=== PATIENT | male | born 1945 | race Caucasian/White ===

== ENCOUNTER → 2022-08-18 | Outpatient (CLI) | payer MEDICARE ==
[~2022-08-18] MED LIST: ASPI-556 PO; EZET10TA13 PO; L.AC1CAP6 PO; MULT-1192 PO; POLY17PO4 PO; UBID30CA11 PO; VIT D3 PO
== END | disposition home or self-care (01) ==
LOC: SHCH 14:29
PROVIDERS: ATTEND Internal Medicine Cardiovascular Disease
DX: I08.3 Combined rheumatic disorders of mitral, aortic and tricuspid valves (principal); I48.0 Paroxysmal atrial fibrillation
CPT/HCPCS: 93306

== ENCOUNTER 2022-11-29 05:33 | Observation (INO) | payer MEDICARE ==
[2022-11-26 09:58] LABS: BASOPHILS % (AUTO) 0.2 % (0.0-5.0); EOSINOPHILS % (AUTO) 1.6 % (0.0-8.0); HEMATOCRIT 44.3 % (42-54); LYMPHOCYTES % (AUTO) 19.7 % (21.0-51.0); MEAN CORPUSCULAR HEMOGLOBIN 29.1 pg (27.0-33.0); MEAN CORPUSCULAR HGB CONC 31.4 g/dL (32.0-36.0); MEAN CORPUSCULAR VOLUME 92.7 fL (79-99); MONOCYTES % (AUTO) 13.9 % (3.0-13.0); NEUTROPHILS % (AUTO) 64.1 % (40.0-77.0); PLATELET COUNT (AUTO) 163 K/uL (130-400); RED BLOOD CELL COUNT(AUTO) 4.78 MIL/uL (4.50-6.20); RED CELL DISTRIBUTION WIDTH 12.7 % (11.0-15.5); WHITE BLOOD COUNT (AUTO) 6.2 K/uL (4.8-10.8)
[2022-11-26 10:11] LABS: POTASSIUM 5.1 mmol/L (3.5-5.1)
[2022-11-26 10:13] VITALS: BP 139/77
[2022-11-26 10:14] LABS: INR 1.13 (0.85-1.15); PROTHROMBIN TIME 12.2 SEC (9.6-11.6)
[2022-11-26 10:16] LABS: PARTIAL THROMBOPLASTIN TIME 31.6 SEC (26.3-35.5)
[~2022-11-29] VITALS: Ht 188 cm; Wt 112.5 kg
[2022-11-29] VITALS (23 sets, daily range): BP systolic 107–153; BP diastolic 61–90
[~2022-11-29 05:33] MED LIST changes: +APIX5TAB PO; -ASPI-556 PO; -L.AC1CAP6 PO; +LACT10SO76 PO; +MAGN500C4 PO; -MULT-1192 PO; -POLY17PO4 PO; +TAMS-1 PO; -UBID30CA11 PO; +VIBE75TA PO; -VIT D3 PO
[2022-11-29] MEDS ORDERED: HEPARIN 10,000 UNIT/10ML (1,000 UNIT/ML) VIAL ONE ×2 (07:16→09:31)
[2022-11-29] MEDS ORDERED: PROPOFOL 10 MG/ML 20ML VIAL IV ONE (07:31)
[2022-11-29] MEDS ORDERED: GLYCOPYRROLATE 1 MG/5 ML SYRINGE ONE (07:31)
[2022-11-29] MEDS ORDERED: SUCCINYLCHOLINE CHLORIDE 20 MG/ML 10 ML VIAL ONE (07:31)
[2022-11-29] MEDS ORDERED: LIDOCAINE PF 100MG/5ML (2%) SYRINGE 5ML ONE (07:31)
[2022-11-29] MEDS ORDERED: ONDANSETRON 4MG INJ ONE (07:32)
[2022-11-29] MEDS ORDERED: PHENYLEPHRINE HCL 10 MG/ML 1ML VIAL IV ONE ×2 (07:32→09:33)
[2022-11-29] MEDS ORDERED: NEOSTIGMINE 5MG/5ML SYR IV ONE (07:32)
[2022-11-29] MEDS ORDERED: ROCURONIUM 10MG/1ML SYR 10 MG/ML ML ONE (07:32)
[2022-11-29] MEDS ORDERED: FENTANYL CITRATE PF 50 MCG/1 ML 2ML VIAL ONE (07:33)
[2022-11-29] MEDS ORDERED: KETAMINE 50MG/ML SYRINGE 50 MG/ML DISP.SYRIN ONE (07:34)
[2022-11-29] MEDS ORDERED: MIDAZOLAM HCL 1 MG/ML 2ML VIAL ONE (08:00)
[2022-11-29] MEDS ORDERED: ROCURONIUM BROMIDE 10MG/1ML 5ML VL ONE ×2 (09:09→10:34)
[2022-11-29] MEDS ORDERED: NOREPINEPHRINE BITARTRATE 1 MG/1 ML ML IV ONE (09:22)
[2022-11-29] MEDS ORDERED: ISOPROTERENOL HCL 0.2 MG/ML AMP/VIAL/BAG ONE (11:32)
[2022-11-29] MEDS ORDERED: PROTAMINE SULFATE 10 MG/ML 25ML VIAL IV ONE (11:54)
[2022-11-29] MEDS ORDERED: SUGAMMADEX SODIUM 200 MG/2 ML VIAL IV ONE (11:58)
[2022-11-29] MEDS ORDERED: PANTOPRAZOLE 40 MG TAB DR PO SCH (12:30)
[2022-11-29] MEDS ORDERED: PANT40TA55 PO (12:30)
[2022-11-29] MEDS ORDERED: SUCR1ORA15 PO (12:30)
[2022-11-29] MEDS ORDERED: ACETAMINOPHEN 325 MG TAB PO PRN (12:30)
[2022-11-29] MEDS: SUCRALFATE 1 GM TABLET PO SCH ×2 (18:24→21:25)
[2022-11-30 00:09] VITALS: BP 107/60
[2022-11-30 04:06] VITALS: BP 114/67
[2022-11-30] MEDS: SUCRALFATE 1 GM TABLET PO SCH (06:35)
[2022-11-30] MEDS ORDERED: PANTOPRAZOLE 40 MG TAB DR PO SCH (07:30)
[2022-11-30 08:00] VITALS: BP 106/62
== END 2022-11-30 11:00 | disposition home or self-care (01) ==
LOC: DAH 05:33 → DAHIP 05:34 → 2AH 10:00
PROVIDERS: ADMIT Internal Medicine Cardiovascular Disease; ATTEND Internal Medicine Cardiovascular Disease
DX: I48.0 Paroxysmal atrial fibrillation (principal); Z20.822 Contact with and (suspected) exposure to COVID-19; Z79.01 Long term (current) use of anticoagulants; Z79.899 Other long term (current) drug therapy; Z98.890 Other specified postprocedural states
CPT/HCPCS: 80048; 85025; 85610; 85730; 87426; 36415; 93005 ×2; 93622; 93623; 93655; 93656; 93657; A4344; C1894 ×3; C1893; A4215 ×2; C1731; A4649 ×2; C1732; C1730; G0378 ×22; J3010; J3490 ×6; J2710; J0330; J2720; J2001; J1644 ×3; J2250; J2704; J2405; J2370 ×2; A4223 ×3; A4222; A4221; A4663; A4216; A4606

== ENCOUNTER 2023-01-31 10:28 | Observation (INO) | payer MEDICARE ==
[~2023-01-31] VITALS: Ht 185.4 cm; Wt 109.5 kg
[~2023-01-31 10:28] MED LIST changes: +PANT40TA55 PO; +SUCR1ORA15 PO
[2023-01-31] MEDS ORDERED: DILTIAZEM 50MG VIAL IV ONE (11:00)
[2023-01-31 11:04] LABS: HEMATOCRIT 46.3 % (42-54); MEAN CORPUSCULAR HGB CONC 32.8 g/dL (32.0-36.0); MEAN CORPUSCULAR VOLUME 88.4 fL (79-99); RED BLOOD CELL COUNT(AUTO) 5.24 MIL/uL (4.50-6.20); RED CELL DISTRIBUTION WIDTH 12.9 % (11.0-15.5); WHITE BLOOD COUNT (AUTO) 6.4 K/uL (4.8-10.8)
[2023-01-31 11:14] LABS: POTASSIUM 4.5 mmol/L (3.5-5.1)
[2023-01-31 11:18] LABS: ALBUMIN 3.6 g/dL (3.5-5.0); TOTAL PROTEIN, SERUM 7.1 g/dL (6.0-8.3)
[2023-01-31] MEDS: DILTIAZEM 125MG+100 ML NS 125 ML IV PRN ×2 (12:55→21:11)
[2023-01-31 13:49] LABS: APPEARANCE,URINE CLEAR (CLEAR); BILIRUBIN,URINE NEGATIVE (NEGATIVE); COLOR,URINE LIGHT-YELLOW (YELLOW); GLUCOSE, URINE (UA) NEGATIVE (NEGATIVE); KETONES,URINE NEGATIVE (NEGATIVE); LEUKOCYTE ESTERASE ,URINE NEGATIVE Leu/uL (NEGATIVE); NITRATE,URINE NEGATIVE (NEGATIVE); OCCULT BLOOD,URINE NEGATIVE (NEGATIVE); PROTEIN,URINE NEGATIVE (NEGATIVE); UROBILINOGEN,URINE 0.2 mg/dL (0.2-1.0)
[2023-01-31] MEDS ORDERED: DILTIAZEM 125MG+100 ML NS 125 ML IV SCH (14:30)
[2023-01-31] MEDS ORDERED: ACETAMINOPHEN 325 MG TAB PO PRN (14:30)
[2023-01-31] MEDS ORDERED: ONDANSETRON 4MG INJ IVP PRN (14:30)
[2023-01-31] MEDS ORDERED: METOPROLOL TARTRATE 25 MG TAB ONE (15:13)
[2023-01-31] MEDS ORDERED: METOPROLOL TARTRATE 25 MG TAB PO ONE (15:30)
[2023-01-31 17:22] VITALS: BP 135/92
[2023-01-31] MEDS ORDERED: L.AC1CAP6 PO (18:24)
[2023-01-31] MEDS ORDERED: MV-M1CAP24 PO (18:24)
[2023-01-31] MEDS ORDERED: MECO10005 PO (18:24)
[2023-01-31] MEDS ORDERED: POLY17PO4 PO (18:24)
[2023-01-31] MEDS ORDERED: [UNRECOGNIZED DRUG - CODE] PO (18:24)
[2023-01-31] MEDS ORDERED: CHOL50002 PO (18:24)
[2023-01-31] MEDS ORDERED: LINA72CA PO (18:24)
[2023-01-31 20:00] VITALS: BP 100/43
[2023-01-31 20:47] VITALS: BP 90/72
[2023-01-31] MEDS ORDERED: METOPROLOL TARTRATE 25 MG TAB PO SCH (21:00)
[2023-01-31 21:04] VITALS: BP 102/74
[2023-01-31] MEDS: APIXABAN 5 MG TABLET PO SCH (21:11)
[2023-01-31] MEDS: FAMOTIDINE 20MG TAB PO SCH (21:11)
[2023-01-31] MEDS ORDERED: METOPROLOL TARTRATE 50 MG TAB PO ONE (23:00)
[2023-02-01] VITALS (36 sets, daily range): BP systolic 75–137; BP diastolic 33–97
[2023-02-01 03:35] LABS: BASOPHILS % (AUTO) 0.3 % (0.0-5.0); EOSINOPHILS % (AUTO) 2.2 % (0.0-8.0); HEMATOCRIT 44.9 % (42-54); LYMPHOCYTES % (AUTO) 27.5 % (21.0-51.0); MEAN CORPUSCULAR HEMOGLOBIN 29.1 pg (27.0-33.0); MEAN CORPUSCULAR HGB CONC 32.1 g/dL (32.0-36.0); MEAN CORPUSCULAR VOLUME 90.7 fL (79-99); MONOCYTES % (AUTO) 14.1 % (3.0-13.0); NEUTROPHILS % (AUTO) 55.6 % (40.0-77.0); PLATELET COUNT (AUTO) 181 K/uL (130-400); RED BLOOD CELL COUNT(AUTO) 4.95 MIL/uL (4.50-6.20); WHITE BLOOD COUNT (AUTO) 6.4 K/uL (4.8-10.8)
[2023-02-01 03:50] LABS: ALBUMIN 3.1 g/dL (3.5-5.0); CREATININE 0.9 mg/dL (0.5-1.5); MAGNESIUM 1.9 mg/dL (1.80-2.40); POTASSIUM 4.2 mmol/L (3.5-5.1); TOTAL PROTEIN, SERUM 6.1 g/dL (6.0-8.3)
[2023-02-01] MEDS ORDERED: MAGNESIUM 2GM PREMIX 50ML 50 ML IV PRN (05:00)
[2023-02-01] MEDS: METOPROLOL TARTRATE 50 MG TAB PO SCH ×2 (09:45→14:00)
[2023-02-01] MEDS: APIXABAN 5 MG TABLET PO SCH (09:45)
[2023-02-01] MEDS: FAMOTIDINE 20MG TAB PO SCH (09:45)
[2023-02-01] MEDS ORDERED: AMIODARONE 900MG VIAL 360 MG in DEXTROSE 5%-WATER 200 ML IV SCH (10:30)
[2023-02-01] MEDS ORDERED: AMIODARONE 900MG VIAL 150 MG in DEXTROSE 5%-WATER 100 ML IV SCH (10:30)
[2023-02-01] MEDS ORDERED: SUCCINYLCHOLINE CHLORIDE 20 MG/ML 10 ML VIAL ONE (15:21)
[2023-02-01] MEDS ORDERED: PROPOFOL 10 MG/ML 20ML VIAL IV ONE (15:21)
[2023-02-01] MEDS ORDERED: LIDOCAINE PF 100MG/5ML (2%) SYRINGE 5ML ONE (15:21)
[2023-02-01] MEDS ORDERED: AMIO400T4 PO (16:10)
[2023-02-01] MEDS ORDERED: AMIODARONE 900MG VIAL 540 MG in DEXTROSE 5%-WATER 300 ML IV SCH (16:30)
[2023-02-01] MEDS ORDERED: AMIODARONE 200 MG TABLET PO SCH (21:00)
[2023-02-20] MEDS ORDERED: METO25TA6 PO (13:35)
[2023-02-20] MEDS ORDERED: AMIO100T4 PO (13:35)
[2023-02-20] MEDS ORDERED: MVIT PO (13:37)
[2023-02-20] MEDS ORDERED: CYAN50009 PO (13:37)
[2023-02-20] MEDS ORDERED: DOCU-116 PO (13:39)
[2023-02-20] MEDS ORDERED: ZINC PO (13:40)
== END 2023-02-01 18:15 | disposition home or self-care (01) ==
LOC: EDH 10:28 → EDHIP 14:28 → INTOOBSV 14:28 → 2AH 16:56
PROVIDERS: ADMIT Hospitalist; ATTEND Hospitalist
DX: I48.91 Unspecified atrial fibrillation (principal); I10 Essential (primary) hypertension; R32 Unspecified urinary incontinence; R35.0 Frequency of micturition; I25.10 Atherosclerotic heart disease of native coronary artery without angina pectoris; I42.9 Cardiomyopathy, unspecified; I47.1 Supraventricular tachycardia; I48.0 Paroxysmal atrial fibrillation; I48.4 Atypical atrial flutter; I49.3 Ventricular premature depolarization; Z79.899 Other long term (current) drug therapy; Z98.890 Other specified postprocedural states
CPT/HCPCS: 96365; 96366 ×4; 92960; 99285; 83735 ×2; 84484; 80053 ×2; 83880; 85027; 81003; 36415 ×2; 71045; 93005 ×2; 96367; 85025; 82948; G0378 ×27; J3490 ×3; J3475; J0330; J2001; J7060 ×3; J2704; J0282 ×3; 99151; 99153

== ENCOUNTER 2023-02-26 06:33 | Day surgery (SDC) | payer MEDICARE ==
[2023-02-20 12:52] LABS: BASOPHILS % (AUTO) 0.4 % (0.0-5.0); EOSINOPHILS % (AUTO) 1.5 % (0.0-8.0); HEMATOCRIT 43.2 % (42-54); MEAN CORPUSCULAR HEMOGLOBIN 29.1 pg (27.0-33.0); MEAN CORPUSCULAR HGB CONC 31.5 g/dL (32.0-36.0); MEAN CORPUSCULAR VOLUME 92.5 fL (79-99); NEUTROPHILS % (AUTO) 68.8 % (40.0-77.0); PLATELET COUNT (AUTO) 192 K/uL (130-400); RED BLOOD CELL COUNT(AUTO) 4.67 MIL/uL (4.50-6.20); RED CELL DISTRIBUTION WIDTH 13.3 % (11.0-15.5); WHITE BLOOD COUNT (AUTO) 7.5 K/uL (4.8-10.8)
[2023-02-20 13:07] LABS: CREATININE 1.1 mg/dL (0.5-1.5); POTASSIUM 5.2 mmol/L (3.5-5.1)
[2023-02-20 13:27] VITALS: BP 98/69
[~2023-02-26] VITALS: Ht 185.4 cm; Wt 112.8 kg
[2023-02-26] VITALS (7 sets, daily range): BP systolic 78–106; BP diastolic 49–74
[~2023-02-26 06:33] MED LIST changes: +0.9%NACL 1000ML 1,000 ML IV SCH; +AMIO200T68 PO; +CHOL50002 PO; +COLLAGEN PO; +CYAN50009 PO; +DOCU-116 PO; +GLUCOSAMINE PO; +L.AC1CAP6 PO; -LACT10SO76 PO; +LINA72CA PO; +METO25TA6 PO; +MV-M1CAP24 PO; +MVIT PO; -PANT40TA55 PO; +POLY17PO4 PO; -SUCR1ORA15 PO; +UBID1CAP56 PO; +ZINC PO; +[UNRECOGNIZED DRUG - OTHER] PO
[2023-02-26] MEDS ORDERED: FOLI0.8T3 PO (07:50)
[2023-02-26] MEDS ORDERED: PROPOFOL 10 MG/ML 20ML VIAL IV ONE (08:21)
[2023-02-26] MEDS ORDERED: MIDAZOLAM HCL 1 MG/ML 2ML VIAL ONE (08:21)
== END 2023-02-26 10:15 | disposition home or self-care (01) ==
LOC: DAH 06:33
PROVIDERS: ATTEND Internal Medicine Cardiovascular Disease
DX: I48.4 Atypical atrial flutter (principal); Z20.822 Contact with and (suspected) exposure to COVID-19; I48.0 Paroxysmal atrial fibrillation; I11.9 Hypertensive heart disease without heart failure; K21.9 Gastro-esophageal reflux disease without esophagitis; I25.10 Atherosclerotic heart disease of native coronary artery without angina pectoris; M19.90 Unspecified osteoarthritis, unspecified site; Z82.61 Family history of arthritis; Z82.49 Family history of ischemic heart disease and other diseases of the circulatory system; Z79.01 Long term (current) use of anticoagulants
CPT/HCPCS: 87426; 80048; 85025; 36415; 92960; 93005 ×2; J7030 ×2; J2250; J2704; A4615; A4215; A4213; A4222; A4221; A4663; A4606; A4223 ×3

== ENCOUNTER → 2023-03-12 | Outpatient (CLI) | payer MEDICARE ==
[~2023-03-12] MED LIST changes: -0.9%NACL 1000ML 1,000 ML IV SCH; +FOLI0.8T3 PO; -METO25TA6 PO
[2023-03-12 16:58] LABS: ALBUMIN 3.5 g/dL (3.5-5.0); CREATININE 1.1 mg/dL (0.5-1.5); POTASSIUM 4.7 mmol/L (3.5-5.1); THYROID STIMULATING HORMONE 3.19 uIU/mL (0.36-3.74); TOTAL PROTEIN, SERUM 6.9 g/dL (6.0-8.3)
== END | disposition home or self-care (01) ==
LOC: LAB 15:31
PROVIDERS: ATTEND Internal Medicine Cardiovascular Disease
DX: I48.4 Atypical atrial flutter (principal); I10 Essential (primary) hypertension
CPT/HCPCS: 36415; 80053; 84443

== ENCOUNTER → 2023-09-06 | Outpatient (CLI) | payer MEDICARE ==
[~2023-09-06] MED LIST changes: -EZET10TA13 PO; +EZET10TA81 PO
[2023-09-06 15:13] LABS: BASOPHILS # (AUTO) 0.03 K/uL (0.00-0.20); BASOPHILS % (AUTO) 0.4 % (0.0-5.0); EOSINOPHILS # (AUTO) 0.12 K/uL (0.00-0.70); EOSINOPHILS % (AUTO) 1.6 % (0.0-8.0); HEMATOCRIT 43.2 % (42-54); IMMATURE GRANULOCYTE ABSOLUTE 0.03 K/uL (0-1); LYMPHOCYTES # (AUTO) 1.4 K/uL (1.0-4.8); LYMPHOCYTES % (AUTO) 18.2 % (21.0-51.0); MEAN CORPUSCULAR HEMOGLOBIN 30.5 pg (27.0-33.0); MEAN CORPUSCULAR HGB CONC 32.2 g/dL (32.0-36.0); MEAN CORPUSCULAR VOLUME 94.7 fL (79-99); NEUTROPHILS % (AUTO) 66.4 % (40.0-77.0); PLATELET COUNT (AUTO) 190 K/uL (130-400); RED BLOOD CELL COUNT(AUTO) 4.56 MIL/uL (4.50-6.20); RED CELL DISTRIBUTION WIDTH 13.2 % (11.0-15.5); WHITE BLOOD COUNT (AUTO) 7.5 K/uL (4.8-10.8)
[2023-09-06 15:30] LABS: ALBUMIN 3.5 g/dL (3.5-5.0); BILIRUBIN,TOTAL 0.6 mg/dL (0.2-1.0); POTASSIUM 4.6 mmol/L (3.5-5.1); THYROID STIMULATING HORMONE 1.74 uIU/mL (0.36-3.74)
== END | disposition home or self-care (01) ==
LOC: LAB 14:03
PROVIDERS: ATTEND Internal Medicine Cardiovascular Disease
DX: I48.0 Paroxysmal atrial fibrillation (principal)
CPT/HCPCS: 36415; 80053; 84443; 85025

== ENCOUNTER → 2023-12-02 | Outpatient (CLI) | payer MEDICARE | END | disposition home or self-care (01) | LOC: CANPRECLI → SHCH 10:36 | PROVIDERS: ATTEND Internal Medicine Cardiovascular Disease | DX: I35.1 Nonrheumatic aortic (valve) insufficiency (principal); I35.8 Other nonrheumatic aortic valve disorders; I51.7 Cardiomegaly; I48.4 Atypical atrial flutter | CPT/HCPCS: 93306 ==

== ENCOUNTER 2024-10-30 11:39 | Inpatient (IN) | payer MEDICARE ==
[~2024-10-30] VITALS: Ht 188 cm; Wt 103.1 kg
[2024-10-30 12:34] LABS: BASOPHILS # (AUTO) 0.03 K/uL (0.00-0.20); BASOPHILS % (AUTO) 0.3 % (0.0-5.0); EOSINOPHILS # (AUTO) 0.06 K/uL (0.00-0.70); EOSINOPHILS % (AUTO) 0.7 % (0.0-8.0); HEMATOCRIT 47.6 % (42-54); IMMATURE GRANULOCYTE ABSOLUTE 0.05 K/uL (0-1); LYMPHOCYTES # (AUTO) 1.5 K/uL (1.0-4.8); LYMPHOCYTES % (AUTO) 16.1 % (21.0-51.0); MEAN CORPUSCULAR HEMOGLOBIN 30.1 pg (27.0-33.0); MEAN CORPUSCULAR HGB CONC 32.1 g/dL (32.0-36.0); MEAN CORPUSCULAR VOLUME 93.7 fL (79-99); MONOCYTES # (AUTO) 1.2 K/uL (0.1-1.0); MONOCYTES % (AUTO) 12.8 % (3.0-13.0); NEUTROPHILS # (AUTO) 6.4 K/uL (1.8-7.7); NEUTROPHILS % (AUTO) 69.6 % (40.0-77.0); PLATELET COUNT (AUTO) 196 K/uL (130-400); RED BLOOD CELL COUNT(AUTO) 5.08 MIL/uL (4.50-6.20); RED CELL DISTRIBUTION WIDTH 13.4 % (11.0-15.5); WHITE BLOOD COUNT (AUTO) 9.2 K/uL (4.8-10.8)
--- NOTE | 2024-10-30 12:39 | HMCIMG ---
CHEST 1VW HISTORY: Shortness of breath COMPARISON: 01/31/2023 FINDINGS: A frontal projection of the chest was obtained. No acute pulmonary infiltrates is seen. The heart is borderline enlarged. Degenerative changes are seen. No evidence of aortic calcification is seen. IMPRESSION: 1. No acute pulmonary infiltrate is seen.
[2024-10-30 12:46] LABS: MAGNESIUM 1.9 mg/dL (1.80-2.40); POTASSIUM 4.2 mmol/L (3.5-5.1)
[2024-10-30 12:57] LABS: B-TYPE NATRIURETIC PEPTIDE 161 pg/mL (0-100)
--- NOTE | 2024-10-30 13:08 | EKG ---
[facility] Test Date: 2024-10-30 Test Time: 12:06:30 Pat Name: MICHELLE RM Department: [facility] Room: 227 Gender: M Vp Patient: [id number] : 1945 Requested By: RAPHAEL SOTO Order Number: [id number] Reading MD: Mis Xie Measurements Intervals [place] Rate: 114 P: 0 ME: 0 QRS: 36 QRSD: 108 T: 58 QT: 351 QTc: 485 Interpretive Statements Atrial flutter with rapid ventricular response Borderline ST depression, diffuse leads Compared to ECG 02/26/2023 08:30:08 ST (T wave) deviation now present Sinus bradycardia no longer present First degree AV block no longer present Prolonged QT interval no longer present Electronically Signed On 11-02-2024 15:53:43 DERRICK CAR OPERATOR by Mis Xie Please click the below link to view image of tracing.
--- NOTE | 2024-10-30 13:14 | ERN ---
General Chief Complaint: Fatigue Stated Complaint: SENT BY DOCTOR Time Seen by MD: 11:40 Time Seen by Midlevel: 11:40 Source: patient History of Present Illness Initial Comments The patient is an 79-year-old male with a past medical history atrial fibrillation presenting to the emergency department with generalized body weakness and fatigue that has been ongoing since yesterday and worsening today. Patient states his smart watch alerted him that he had an irregular heart rhythm. He was currently on Eliquis. He was seen by his umbrella repairer this morning who referred him to the emergency department after an EKG revealed a flutter. Allergies: Coded Allergies: No Known Drug Allergies (Unverified Allergy, Unknown, 11/14/16) Home Meds Reported Medications Folic Acid (Folic Acid) 0.8 Mg Tablet, 0.8 MG PO DAILY, TAB 02/26/23 [Glucosamine] No Conflict Check, 2 GUM PO DAILY 02/25/23 [Collagen] No Conflict Check, 2 GUM PO DAILY 02/25/23 [Brain Food] No Conflict Check, 2 TAB PO DAILY 02/25/23 Ubidecarenone/Vit E Acetate (Co Q-10 100 mg Softgel) 1 Each Capsule, 1 EACH PO DAILY, CAP 02/25/23 Amiodarone HCl (Amiodarone HCl) 200 Mg Tablet, 200 MG PO BID, TAB 02/25/23 [Zinc] No Conflict Check, 1 TAB PO AM 02/20/23 Docusate Sodium (Colace) 100 Mg Capsule, 100 MG PO AM, CAP 02/20/23 Multivitamins,Therapeutic (Multivitamin Tablet) 1 Tab Tab, 1 TAB PO AM, TAB 02/20/23 Cyanocobalamin (Vitamin B-12) (Vitamin B12) 5,000 Mcg Tab.rapdis, 5000 MCG PO AM, TAB 02/20/23 Cholecalciferol (Vitamin D3) (D3-50) 50,000 Unit Capsule, 53279 UNIT PO DAILY, CAP 01/31/23 L.acidoph & Paracasei,B.lactis (Probiotic) 1 Each Capsule, 1 EACH PO DAILY, CAP 01/31/23 Mv-Mn/Om3/Dha/Epa/Fish/Lut/Nanda (Ocuvite Adult 50 Plus Softgel) 1 Each Capsule, 1 EACH PO DAILY, CAP 01/31/23 Polyethylene Glycol 3350 (Miralax) 17 Gm Powd.pack, 1 CAP PO DAILY PRN for constipation 01/31/23 Linaclotide (Linzess) 72 Mcg Capsule, 72 MCG PO DAILY, CAP 01/31/23 Tamsulosin HCl (Flomax) 0.4 Mg Cap.er.24h, 0.4 MG PO HS, CAPSULE. 11/26/22 Vibegron (Gemtesa) 75 Mg Tablet, 75 MG PO DAILY, TAB 11/26/22 Apixaban (Eliquis) 5 Mg Tablet, 5 MG PO BID, TAB 09/10/22 Magnesium Oxide (Magnesium) 500 Mg Capsule, 500 MG PO DAILY, CAP 09/07/22 Ezetimibe (Zetia) 10 Mg Tablet, 10 MG PO DAILY, TAB 11/09/16 Past Medical History Past Medical History: A-Fib, High Cholesterol Past Surgical History: Other Surgical History Other: ABLATION Social History Social History: Negative, Lives with family ROS Dictation CONSTITUTIONAL: Negative except for HPI HEAD/FACE: Negative except for HPI EENT: Negative except for HPI RESPIRATORY: Negative except for HPI GASTROINTESTINAL/ABDOMINAL: Negative except for HPI GENITOURINARY: Negative except for HPI MUSCULOSKELETAL: Negative except for HPI INTEGUMENTARY: Negative except for HPI NEUROLOGICAL/PSYCH: Negative except for HPI HEMATOLOGIC/LYMPHATIC: Negative except for HPI All Systems Negative, Except as noted above. 13 point review of systems assessed and all negative except for above. Physical Exam Physical Exam Dictation Vital Signs reviewed General Appearance: Alert, oriented x 3, no acute distress, well developed, nourished. Head and Face: non-traumatic. Eyes: PERRL, pink conjunctivas, eyelid no trauma, anterior chamber with arcus senilis. Ears: Pinnas intact and no signs of trauma or erythema ear canals clear and no discharge TM no erythema Nose: No discharge, no bleeding. Oropharynx: Mouth normal, tongue pink, pharynx clear,no erythema, tonsils no exudates, no abscesses noted, mucous membrane moist Neck: Supple, non-tender, no thyromegaly, no masses, no JVD, no bruits Breast:Deferred Chest:No tenderness, no crepitus, no paradoxical movement, no retractions Lungs:Clear, well-ventilated, symmetric, no rales, no wheezing, no rhonchi, no stridor, good breath sounds bilaterally Heart: Regular rate, regular rhythm, no murmur, no gallops Vascular: no peripheral edema, Abdomen: Soft, positive bowel sounds, nondistended, no guarding, nontender, no rebound, no masses no hepatomegaly, no splenomegaly, no Mujica's sign, no hernias. Rectal: Deferred Genital: Deferred Neurological: Normal speech, motor function intact, sensory function intact Musculoskeletal: Neck nontender, full range of motion, back nontender, full range of motion, Extremities: nontender, full range of motion Skin: Color pink, dry, no turgor, no rash, no lacerations, no abrasions, no contusions. Lymphatic: Deferred Results Laboratory and Microbiology Lab and Micro Result Laboratory Tests Test 10/30/24 12:17 White Blood Count 9.2 K/uL (4.8-10.8) Red Blood Count 5.08 MIL/uL (4.50-6.20) Hemoglobin 15.3 g/dL (14.0-18.0) Hematocrit 47.6 % (42-54) Mean Corpuscular Volume 93.7 fL (79-99) Mean Corpuscular Hemoglobin 30.1 pg (27.0-33.0) Mean Corpuscular Hemoglobin Concent 32.1 g/dL (32.0-36.0) Red Cell Distribution Width 13.4 % (11.0-15.5) Platelet Count 196 K/uL (130-400) Mean Platelet Volume 10.1 fL (7.5-10.5) Immature Granulocyte % (Auto) 0.5 % (0-1) Neutrophils (%) (Auto) 69.6 % (40.0-77.0) Lymphocytes (%) (Auto) 16.1 % (21.0-51.0) L Monocytes (%) (Auto) 12.8 % (3.0-13.0) Eosinophils (%) (Auto) 0.7 % (0.0-8.0) Basophils (%) (Auto) 0.3 % (0.0-5.0) Neutrophils # (Auto) 6.4 K/uL (1.8-7.7) Lymphocytes # (Auto) 1.5 K/uL (1.0-4.8) Monocytes # (Auto) 1.2 K/uL (0.1-1.0) H Eosinophils # (Auto) 0.06 K/uL (0.00-0.70) Basophils # (Auto) 0.03 K/uL (0.00-0.20) Absolute Immature Granulocyte (auto 0.05 K/uL (0-1) Nucleated Red Blood Cells 0.0 % (0.0-0.19) Sodium Level 143 mmol/L (136-145) Potassium Level 4.2 mmol/L (3.5-5.1) Chloride Level 107 mmol/L (101-111) Carbon Dioxide Level 30 mmol/L (21-32) Blood Urea Nitrogen 29 mg/dL (7-18) H Creatinine 1.0 mg/dL (0.5-1.3) Glomerular Filtration Rate Calc 76 mL/min (>90) Random Glucose 95 mg/dL (70-105) Total Calcium 8.8 mg/dL (8.5-10.1) Magnesium Level 1.90 mg/dL (1.80-2.40) Total Creatine Kinase 37 U/L (21-232) Troponin I High Sensitivity 15 ng/L (4-75) B-Type Natriuretic Peptide 161 pg/mL (0-100) H MDM MDM: Differential diagnosis: Atrial fibrillation with RVR, atrial flutter, cardiac arrhythmia Rationale: Tests considered and ordered secondary to shared decision making include: Previous outside records reviewed: Old ER visits. Risk of complication and/or morbidity or mortality of patient management: None Medications-Per medication reconciliation Need for hospitalization: Patient does meet criteria for hospitalization. Need for emergency major/minor surgery: No There are no social concerns with this patient. Prescription drug management Prescriptions will include symptomatic care Patient's prior external medical records from other ER visits were reviewed by me as indicated. Prior testing and results from previous visits were reviewed. Prior tests were taken into account with medical decision making and resource utilization, independent historian/historians were used to obtain complete medical history. I independently interpreted the test that were performed, results were reviewed by me and considered findings on radiology if ordered. Medical management and examination interpretation discussions were had by me wi th other qualified healthcare professionals as indicated for the patient's care. ED Course Orders Procedure Category Date Status Time 12 Lead Ekg Tracing- EKG 10/30/24 Complete Technical 12: Cbc With Differential LAB 10/30/24 Complete 12:01 Basic Metabolic Panel LAB 10/30/24 Complete 12:01 B-Type Natriuretic LAB 10/30/24 Complete Peptide 12:01 Creatine Kinase, Total LAB 10/30/24 Complete 12:01 Troponin I High LAB 10/30/24 Complete Sensitivity 12:01 Chest 1vw RAD 10/30/24 Resulted 12:01 Magnesium LAB 10/30/24 Complete 12:01 Vital Signs Date Time Temp Pulse Resp B/P (MAP) Pulse Ox O2 Delivery O2 Flow Rate FiO2 10/30/24 13:27 108 18 101/64 97 Room Air* 0 21 10/30/24 11:40 98.2 89 20 103/63 98 Room Air 0 DX & DISP Disposition: Inpatient Departure Impression: Primary Impression: Atrial flutter Condition: Stable Referrals: PASTORA DAVENPORT MD (PCP) I have reviewed the case, and I agree with, Diagnosis and Plan I performed the substantive portion of the visit. I have reviewed and personally made and approve the management plan that is documented in the note by myself or the VESNA. I acknowledge for responsibility for the patient's management plan. RAPHAEL SOTO Oct 30, 2024 13:14
[2024-10-30] MEDS ORDERED: acetaMINOPHEN 500 MG TABLET PO PRN (15:00)
[2024-10-30] MEDS ORDERED: ondanSETRON 4MG INJ IVP PRN (15:00)
[2024-10-30] MEDS ORDERED: PoTASSium chl 10% ELIXIR 20MEQ 20 MEQ/15 ML UDCUP PO PRN (15:00)
[2024-10-30] MEDS: 0.9%NACL 1000ML 1,000 ML IV SCH (15:00)
[2024-10-30] MEDS ORDERED: PoTASSium chloRIDE 20MEQ/100ML 100 ML IV PRN (15:00)
[2024-10-30] MEDS ORDERED: metoPROLOL tartRATE 1 MG/ML 5ML VIAL IV PRN (15:00)
[2024-10-30] MEDS ORDERED: CALC625T31 PO (15:14)
[2024-10-30] MEDS ORDERED: DONE5TAB33 PO (15:14)
[2024-10-30] MEDS ORDERED: TAMS-1 PO (15:14)
[2024-10-30 15:17] LABS: SARS-CoV-2, RNA, NAAT NEGATIVE SARS CoV-2 (NEGATIVE)
[2024-10-30 15:17] LABS: HEMOGLOBIN A1C 5.2 % (4.0-6.0)
[2024-10-30 15:24] LABS: INFLUENZA TYPE A Negative For Type A (NEGATIVE); INFLUENZA TYPE B Negative For Type B (NEGATIVE)
[2024-10-30 15:29] LABS: ALBUMIN 3.3 g/dL (3.5-5.0); BILIRUBIN,DIRECT 0.1 mg/dL (0.0-0.3); BILIRUBIN,TOTAL 0.6 mg/dL (0.2-1.0); THYROID STIMULATING HORMONE 2.47 uIU/mL (0.36-3.74); TOTAL PROTEIN, SERUM 6.5 g/dL (6.0-8.3)
[2024-10-30 15:41] LABS: APPEARANCE,URINE CLEAR (CLEAR); BILIRUBIN,URINE NEGATIVE (NEGATIVE); COLOR,URINE YELLOW (YELLOW); GLUCOSE, URINE (UA) NEGATIVE (NEGATIVE); KETONES,URINE 5 mg/dL (NEGATIVE); LEUKOCYTE ESTERASE ,URINE NEGATIVE Leu/uL (NEGATIVE); NITRATE,URINE NEGATIVE (NEGATIVE); OCCULT BLOOD,URINE NEGATIVE (NEGATIVE); PROTEIN,URINE 10 mg/dL (NEGATIVE); UROBILINOGEN,URINE 0.2 mg/dL (0.2-1.0)
[2024-10-30 15:46] LABS: ADD UA MICROSCOPIC YES
[2024-10-30 16:01] LABS: MUCUS,URINE RARE LPF (None Seen); OTHER CASTS, URINE 1 /LPF (None Seen); SQUAMOUS EPITHELIAL CELL,UR RARE /HPF (0-2); WBC,URINE 0-1 /HPF (0-1)
[2024-10-30] MEDS: MAGNESIUM 2GM PREMIX 50ML 50 ML IV SCH (16:14)
--- NOTE | 2024-10-30 18:05 | HP ---
[facility] HISTORY [facility] PHYSICAL Date of Service: Oct 30, 2024 Time of Service: 17:53 HISTORY OF PRESENT ILLNESS: Date of service: 10/30/2024, patient was seen in ER room four 79 year old male with history of atrial flutter/atrial fibrillation with prior history of catheter ablation for paroxysmal atrial fibrillation 11/2022, history of multiple cardioversions for atrial fibrillation, BPH, who presented to the ER for further evaluation of abnormal heart rhythm. Patient states that since yesterday morning, his apple watch notified him that his heart rate was irregular and he was worried that he may be in atrial fibrillation. He started taking Eliquis yesterday for anticoagulation. Reports that he has been off Eliquis for about nine months previously. Patient is followed by Dr. Stone and Dr. Frank with Cardiology as outpatient. He has underlying history of paroxysmal atrial fibrillation and previously has undergone catheter ablation with most recent being in 11/2022 and cardioversion as well with last being close to September,. Patient states that since yesterday he has also noticed significant fatigue as well. Denies any focal weakness of upper or lower extremities. Denies any history of stroke. Patient states that he previously was on amiodarone but due to side effects of it causing significant tiredness, medication was eventually stopped. Denies any fevers, chills, shortness of breath, or chest pain. Patient does report that he took a dose of Eliquis this morning. On presentation to the hospital, patient was noted to have systolic blood pressure in the 90s to 100s/60s diastolic. Patient was noted to be in atrial flutter on presentation with heart rate trending between 100s-110s. Labs on presentation showed WBC count of 9200, hemoglobin of 15.3, platelet count of 459026. BMP remarkable for sodium of 143, potassium 4.2, BUN of 29, creatinine 1.0, magnesium. Chest x-ray showed no acute infiltrates. Patient will be admitted for further management of recurrence of atrial flutter with episodes of RVR. Plan will be for SANDOVAL guided cardioversion tomorrow, patient's case was discussed with Cardiology. Patient will be placed on full- dose anticoagulation with Lovenox and we will need Eliquis on discharge. REVIEW OF SYSTEMS CONSTITUTIONAL: Generalized fatigue and malaise NEUROLOGICAL: Denies headache, amaurosis fugax, motor weakness, sensory deficit, vertigo/spinning sensation, gait abnormalities, or tremors. ENT: No hearing loss, otalgia, otorrhea, rhinitis, rhinorrhea, hoarseness, or sore throat. CARDIOVASCULAR: Reports having palpitations PULMONARY: Denies any shortness of breath, cough, phlegm/sputum, hemoptysis, pleuritic chest pain. SLEEP: Denies morning headaches, daytime somnolence or napping. Denies difficulty falling asleep, staying asleep, waking from sleep. Denies knowledge of snoring. GASTROINTESTINAL: Denies any type of dysphagia to either liquids or solids. Denies nausea, vomiting, pyrosis, early satiety, abdominal pain, diarrhea, constipation, or changes in stool consistency or caliber. Denies coffee-ground emesis, hematemesis, hematochezia, or melanotic stools. GENITOURINARY: Denies frequency, urgency, nocturia, hematuria or incontinence (Storage/Irritative symptoms.) Low urinary stream, straining to void, urinary intermittency or hesitancy, splitting of the voiding stream, terminal dribbling. ENDOCRINOLOGIC: Denies polyuria, polydipsia, polyphagia or heat/cold intolerances. HEMATOLOGIC: Denies thrombophilia/previous clots, or coagulopathy/bleeding disorders. ONCOLOGIC: Denies personal history of malignancy. DERMATOLOGIC: Denies rashes or pruritus. PSYCHIATRIC: Denies any suicidal or homicidal ideation. Denies hallucinations. PAST MEDICAL HISTORY: {history of paroxysmal atrial flutter/atrial fibrillation, urinary incontinence, urinary frequency, BPH] PAST SURGICAL HISTORY: [Testicular torsion when he was 11 years of age, history of prior cardioversions in catheter ablation for management of atrial fibrillation with most recent catheter ablation on 11/2022, last cardioversion was in 09/[address] Frank] PAST SOCIAL HISTORY: [Patient drinks 2 glasses of wine daily, denies tobacco or illicit drug use. Patient is retired. Lives with his . FAMILY HISTORY: [Noncontributory] Allergies: Patient has no known drug allergies Home medications: Calcium polycarbophil 625 mg p.o. daily, donepezil 5 mg daily, Flomax 0.4 mg at bedtime, multivitamin tablet once a day zinc p.o. daily, Linzess 72 mcg p.o. daily, Ocuvite adult soft gel p.o. daily, Gemtesa 75 mg daily, magnesium oxide 500 mg p.o. daily, Zetia 10 mg p.o. daily Patient states that he started taking Eliquis yesterday after he noticed irregular heart rate, he has been off Eliquis for the past nine months Coded Allergies: No Known Drug Allergies (Unverified Allergy, Unknown, 11/14/16) PHYSICAL EXAM GENERAL APPEARANCE: The patient is awake, alert, and oriented, in no acute cardiopulmonary distress. NEUROLOGICAL: Cranial nerves II-XII grossly intact. Motor is 5/5 in bilateral upper and lower extremities proximal to distal. No sensory deficits. HEENT: Face is symmetric. Pupils are equal and reactive. Extraocular movements are intact. NECK: Supple. No JVD. No thyromegaly. No submental, submandibular, pre-/postauricular, occipital or supraclavicular lymphadenopathy. CHEST: Normal chest expansion. No Telemetry. LUNGS: Absence of any rales, rhonchi or any wheezing. CARDIOVASCULAR: Irregularly irregular. S1 and S2 normal. No appreciable rubs, murmurs or gallops. ABDOMEN: Soft, nontender, and nondistended. There is no rebound, voluntary guarding, or rigidity. : Deferred. No Kulkarni. EXTREMITIES: Non-edematous and not cyanotic. No clubbing. Good capillary refill. SKIN: No skin breakdown. Vital Sign (Last 24 Hours) 10/30/24 16:59 Temp 98.1 Pulse 112 Resp 18 B/P (MAP) 125/71 Pulse Ox 99 O2 Delivery Room Air* O2 Flow Rate 0 FiO2 21 LABS: Laboratory: Test 10/30/24 14:55 10/30/24 14:50 10/30/24 12:17 Range/Units Urine Color YELLOW YELLOW Urine Appearance CLEAR CLEAR Urine pH 6.0 5.0-8.0 Urine Specific [place] 1.029 1.001-1.031 Urine Protein 10 H NEGATIVE mg/dL Urine Glucose (UA) NEGATIVE NEGATIVE mg/dL Urine Ketones 5 H NEGATIVE mg/dL Urine Occult Blood NEGATIVE NEGATIVE Urine Nitrate NEGATIVE NEGATIVE Urine Bilirubin NEGATIVE NEGATIVE mg/dL Urine Urobilinogen 0.2 0.2-1.0 mg/dL Urine Leukocyte Esterase NEGATIVE NEGATIVE [place]/uL Urine RBC 2-5 H 0-1 /HPF Urine WBC 0-1 0-1 /HPF Urine Squamous Epithelial Cells RARE 0-2 /HPF Urine Bacteria None None Seen /HPF Urine Other Casts 1 None Seen /LPF Influenza Type A Antigen Negative For Type A NEGATIVE Influenza Type B Antigen Negative For Type B NEGATIVE SARS-CoV-2, RNA, NAAT NEGATIVE SARS CoV-2 NEGATIVE White Blood Count 9.2 4.8-10.8 K/uL Red Blood Count 5.08 4.50-6.20 MIL/uL Hemoglobin 15.3 14.0-18.0 g/dL Hematocrit 47.6 42-54 % Mean Corpuscular Volume 93.7 79-99 fL Mean Corpuscular Hemoglobin 30.1 27.0-33.0 pg Mean Corpuscular Hemoglobin Concent 32.1 32.0-36.0 g/dL Red Cell Distribution Width 13.4 11.0-15.5 % Platelet Count 196 130-400 K/uL Mean Platelet Volume 10.1 7.5-10.5 fL Immature Granulocyte % (Auto) 0.5 0-1 % Neutrophils (%) (Auto) 69.6 40.0-77.0 % Lymphocytes (%) (Auto) 16.1 L 21.0-51.0 % Monocytes (%) (Auto) 12.8 3.0-13.0 % Eosinophils (%) (Auto) 0.7 0.0-8.0 % Basophils (%) (Auto) 0.3 0.0-5.0 % Neutrophils # (Auto) 6.4 1.8-7.7 K/uL Lymphocytes # (Auto) 1.5 1.0-4.8 K/uL Monocytes # (Auto) 1.2 H 0.1-1.0 K/uL Eosinophils # (Auto) 0.06 0.00-0.70 K/uL Basophils # (Auto) 0.03 0.00-0.20 K/uL Absolute Immature Granulocyte (auto 0.05 0-1 K/uL Nucleated Red Blood Cells 0.0 0.0-0.19 % Erythrocyte Sedimentation Rate 3 0-20 MM/HR Sodium Level 143 136-145 mmol/L Potassium Level 4.2 3.5-5.1 mmol/L Chloride Level 107 101-111 mmol/L Carbon Dioxide Level 30 21-32 mmol/L Blood Urea Nitrogen 29 H 7-18 mg/dL Creatinine 1.0 0.5-1.3 mg/dL Glomerular Filtration Rate Calc 76 >90 mL/min Random Glucose 95 70-105 mg/dL Hemoglobin A1c 5.2 4.0-6.0 % Estimated Average Glucose (eAG) 103 70-126 mg/dL Total Calcium 8.8 8.5-10.1 mg/dL Magnesium Level 1.90 1.80-2.40 mg/dL Total Bilirubin 0.6 0.2-1.0 mg/dL Direct Bilirubin 0.1 0.0-0.3 mg/dL Aspartate Amino Transf (AST/SGOT) 14 10-37 U/L Alanine Aminotransferase (ALT/SGPT) 18 12-78 U/L Alkaline Phosphatase 20 L 50-136 U/L Total Creatine Kinase 37 21-232 U/L Troponin I High Sensitivity 15 4-75 ng/L C-Reactive Protein, Quantitative < 0.50 L 0.5-3.0 mg/L B-Type Natriuretic Peptide 161 H 0-100 pg/mL Total Protein 6.5 6.0-8.3 g/dL Albumin 3.3 L 3.5-5.0 g/dL Procalcitonin < 0.05 L 0.05-0.5 ng/mL Thyroid Stimulating Hormone (TSH) 2.47 # 0.36-3.74 uIU/mL Current Medications Medications (Trade) Dose Ordered Sig/Naif Route PRN Reason Start Time Stop Time Status Last Admin Dose Admin Acetaminophen (TYLenol 500MG TAB) 500 mg Q6H PRN PO MILD PAIN (1-3) 10/30/24 15:00 11/29/24 14:59 Donepezil HCl (ARIcept 5MG TAB) 5 mg DAILY PO 10/31/24 09:00 11/30/24 08:59 Enoxaparin Sodium (Lovenox (Pharmacy To Dose)) 1 unit BID SQ 10/30/24 21:00 10/30/24 14:57 DC Enoxaparin Sodium (Lovenox) 100 mg BID SQ 10/30/24 21:00 11/29/24 20:59 EZETIMIBE (Zetia) 10 mg DAILY PO 10/31/24 09:00 11/30/24 08:59 Famotidine (Pepcid 20mg Vial) 20 mg BID IV 10/30/24 21:00 11/29/24 20:59 Home Med (Home Medication) Calcium Polycarbophil (Fiber Ta... DAILY PO 10/31/24 09:00 11/30/24 08:59 Home Med (Home Medication) Linaclotide (Linzess) 72 MCG DAILY PO 10/31/24 09:00 11/30/24 08:59 Home Med (Home Medication) Mv-Mn/Om3/ Dha/Epa/ Fish/L... DAILY PO 10/31/24 09:00 11/30/24 08:59 Home Med (Home Medication) Vibegron (Gemtesa) 75 MG DAILY PO 10/31/24 09:00 11/30/24 08:59 Magnesium Sulfate 50 ml @ 0 mls/hr PROTOCOL IV 10/30/24 15:00 11/29/24 14:59 10/30/24 16:14 25 MLS/HR Metoprolol Tartrate (loprESSOR) 2.5 mg Q6H PRN IV for HR> 130 10/30/24 15:00 11/29/24 14:59 Multivitamins Therapeutic (Multivitamin Tablet) 1 tab AM PO 10/31/24 09:00 11/30/24 08:59 Ondansetron HCl (zoFRAN 4MG INJ) 4 mg Q6H PRN IVP NAUSEA/VOMITING 10/30/24 15:00 11/29/24 14:59 Potassium Chloride 100 ml @ 100 mls/hr AD PRN IV POTASSIUM PROTOCOL 10/30/24 15:00 11/29/24 14:59 Potassium Chloride (K-Dur/Klor-Con 20meq) 20 meq AD PRN PO POTASSIUM PROTOCOL 10/30/24 15:00 11/29/24 14:59 Potassium Chloride (KCl 10% Elixir 20meq/15ml) 20 meq AD PRN PO POTASSIUM PROTOCOL 10/30/24 15:00 11/29/24 14:59 Sodium Chloride 1,000 ml @ 70 mls/hr [id number] IV 10/30/24 15:00 11/29/24 14:59 10/30/24 15:00 70 MLS/HR Tamsulosin HCl (FloMAX) 0.4 mg HS PO 10/30/24 21:00 11/29/24 20:59 DIAGNOSTICS / RADIOLOGY: SERVICE 1201 REASON: sob ORDERING PHYSICIAN: RAPHAEL SOTO PROCEDURE: CXR1VW - CHEST 1VW CHEST 1VW HISTORY: Shortness of breath COMPARISON: 01/31/2023 FINDINGS: A frontal projection of the chest was obtained. No acute pulmonary infiltrates is seen. The heart is borderline enlarged. Degenerative changes are seen. No evidence of aortic calcification is seen. IMPRESSION: 1. No acute pulmonary infiltrate is seen. DICTATED BY: ROXANNE PRO MD DATE: 10/30/24 1237 ELECTRONICALLY SIGNED BY: ROXANNE PRO MD DATE: 10/30/24 1239 ASSESSMENT: Paroxysmal atrial flutter with episodes of RVR, POA History of paroxysmal atrial fibrillation with prior history of cardioversions and ablation, POA Generalized fatigue, POA History of BPH, POA History of urinary urgency, POA PLAN: Patient will be admitted to cardiac telemetry floor We will place p.r.n. orders for IV metoprolol 2.5 mg q.6 hours p.r.n. for heart rate greater than 130, this was discussed with Cardiology Plan will be for patient to undergo SANDOVAL guided cardioversion tomorrow and we will need to rule out any left atrial appendage thrombus, patient has been off anticoagulation for about nine months and is not on antiarrhythmic or beta brad therapy as outpatient either Appreciate recommendations by Cardiology We will maintain K greater than four and magnesium greater than two Blood pressure remains soft, we will start patient on IV hydration with NS at 70 mL/hour, BUN is also noted to be elevated concerning for prerenal azotemia Monitor closely for signs of infection, we will check a TSH All labs will be repeated in the morning Patient to continue with all home medications Patient will be started on full-dose anticoagulation with Lovenox 1 mg/kg tonight, patient will need prescription for Eliquis on discharge post cardioversion Date of service: 10/30/2024, Plan of care was discussed with patient at bedside, Roldan Bynum MD Advanced Care Planning: Which of the following were discussed: Hospice care: Yes __ No _X_ Therapeutic options: Yes __X No __ Advance directives: Yes _X_ No __ Other discussions: Discussed with who?: Patient Voluntary nature of this service was explained to the patient? Yes _x_ No __ Amount of time spent: 20 minutes ROLDAN BYNUM MD Oct 30, 2024 18:05
--- NOTE | 2024-10-30 19:28 | NUR ---
PT CARE ASSUMED AT THIS TIME
[2024-10-30] MEDS ORDERED: FAMOTIDINE 20MG VIAL IV SCH (21:00)
[2024-10-30] MEDS: ENOXAPARIN SODIUM 100 MG/1 ML SQ SCH (21:12)
[2024-10-30] MEDS: tamSULOsin HCL 0.4 MG CAP.ER.24H PO SCH (21:12)
[2024-10-30] MEDS: PANTOPrazole 40 MG/VIAL IVP SCH (21:12)
[2024-10-30] MEDS: FAMOTIDINE 20MG VIAL IV ONE (21:31)
[2024-10-31] VITALS (10 sets, daily range): BP systolic 91–113; BP diastolic 52–82; PULSE 53–112; RESP 18–20; TEMP 97.5–98.7; O2SAT 97–99
--- NOTE | 2024-10-31 00:23 | NUR ---
ATTEMPT TO GIVE REPORT. PENDING CALL BACK AT THIS TIME
--- NOTE | 2024-10-31 00:36 | NUR ---
REPORT GIVEN TO FAUZIA HANEY AT THIS TIME
--- NOTE | 2024-10-31 00:36 | NUR ---
RECEIVED REPORT FROM TIMOTHY CHAMORRO RN.
--- NOTE | 2024-10-31 00:41 | NUR ---
MEDICATION LIST MEDICATION LIST OF HOME MEDS GIVEN BACK TO PT AT THIS TIME
[2024-10-31 06:00] LABS: BASOPHILS # (AUTO) 0.03 K/uL (0.00-0.20); BASOPHILS % (AUTO) 0.4 % (0.0-5.0); EOSINOPHILS # (AUTO) 0.11 K/uL (0.00-0.70); EOSINOPHILS % (AUTO) 1.4 % (0.0-8.0); HEMATOCRIT 47.8 % (42-54); IMMATURE GRANULOCYTE ABSOLUTE 0.05 K/uL (0-1); LYMPHOCYTES % (AUTO) 24.8 % (21.0-51.0); MEAN CORPUSCULAR HEMOGLOBIN 30.2 pg (27.0-33.0); MEAN CORPUSCULAR HGB CONC 32.4 g/dL (32.0-36.0); MONOCYTES % (AUTO) 12.7 % (3.0-13.0); NEUTROPHILS # (AUTO) 4.8 K/uL (1.8-7.7); NEUTROPHILS % (AUTO) 60.1 % (40.0-77.0); PLATELET COUNT (AUTO) 170 K/uL (130-400); RED BLOOD CELL COUNT(AUTO) 5.14 MIL/uL (4.50-6.20); RED CELL DISTRIBUTION WIDTH 13.6 % (11.0-15.5); WHITE BLOOD COUNT (AUTO) 7.9 K/uL (4.8-10.8)
[2024-10-31 06:18] LABS: CREATININE 0.8 mg/dL (0.5-1.3); MAGNESIUM 2.1 mg/dL (1.80-2.40); POTASSIUM 5.2 mmol/L (3.5-5.1)
--- NOTE | 2024-10-31 09:04 | CONS ---
[facility] CARDIOLOGY CONSULTATION NOTE Date Patient Seen: Oct 31, 2024 Time of Visit: 08:57 Requesting Physician: Misa Reason for Consultation: AFIB History of Present Illness: Patient is an 79 year old male with history of paroxysmal atrial fibrillation status post catheter ablation done in 2009 with redo catheter ablation 11/28/2022. He underwent cardioversion 02/26/2023 secondary to persistent atypical atrial flutter. He also has a history of nonobstructive coronary artery disease with 10-20% stenosis in the proximal LAD, 20-30% stenosis in the mid LAD, 20% stenosis in the proximal RCA, and 20% stenosis in the distal RCA ([facility] 09/10/2022). His most recent echocardiogram 12/02/2023 demonstrates an ejection fraction of 55% with a mildly dilated left atrium, mild aortic regurgitation and normal pericardium. His EKG today demonstrates sinus rhythm with 2 multifocal PVCs, heart rate 66 bpm. Patient discontinued his amiodarone in May due to complaints of low energy and lightheadedness, and has been monitoring his heart rhythm via his [employer] smartwatch. Additionally, he discontinued his Eliquis due to easy bruising. He follows Dr Frank () and Dr Stone at the [facility]. Patient was scheduled for implantable loop recorder in September however missed the appointment. He presented to our office on 10/30/24 complaining of palpitations and alert from his watch of recurrence of atrial fibrillation the evening prior.Due to concomitant complaints of chest tightness and shortness of breath, he was referred to the ED. Past Medical History: as above Past Surgical History: Ablation 11/2022 pulmonary vein isolation with the creation of ablation line across the left karlos and posterior wall Testicle removal Eye Surgery Colonoscopy 11/2023 DCCV (done in [place], [place]) 2021, and [place] 2022 LHC: nonobstructive CAD (LHC/coronary angiogram done on 09/10/2022: 10-20% stenosis in the proximal LAD, 20-30% stenosis in the mid LAD, 20% stenosis in the proximal RCA, and 20% stenosis in the distal RCA) Family History: osteoarthritis; father with heart disease and hypertension Social History: nonsmoker; occasional EtOH/wine. Home Meds: Linzess 145 MCG Capsule 1 capsule at least 30 minutes before the first meal of the day on an empty stomach Orally Once a day Zetia 10 MG Tablet 1 tablet Orally Once a day Ocuvite Probiotic - Tablet Delayed Release as directed Orally , Notes to Pharmacist: 100mg Multivitamin - Tablet 1 tablet Orally Once a day Vitamin D3 Zinc 50 MG Tablet 1 tablet Orally Once a day Magnesium Oxide 500 MG Tablet 1 tablet as needed Orally Once a day Flomax 0.4 MG Capsule 1 capsule Orally Once a day Constulose Gemtesa 75 MG Tablet 1 tablet Orally Once a day Vitamin B12 Current Meds: Current Medications Medications Dose Ordered Sig/Naif Start Time Stop Time Status Last Admin Sodium Chloride 1,000 ml @ 70 mls/hr [id number] 10/30/24 15:00 11/29/24 14:59 10/30/24 15:00 Metoprolol Tartrate 2.5 mg Q6H PRN 10/30/24 15:00 11/29/24 14:59 Acetaminophen 500 mg Q6H PRN 10/30/24 15:00 11/29/24 14:59 Ondansetron HCl 4 mg Q6H PRN 10/30/24 15:00 11/29/24 14:59 Potassium Chloride 100 ml @ 100 mls/hr AD PRN 10/30/24 15:00 11/29/24 14:59 Potassium Chloride 20 meq AD PRN 10/30/24 15:00 11/29/24 14:59 Potassium Chloride 20 meq AD PRN 10/30/24 15:00 11/29/24 14:59 Magnesium Sulfate 50 ml @ 0 mls/hr PROTOCOL 10/30/24 15:00 11/29/24 14:59 10/30/24 16:14 Enoxaparin Sodium 100 mg BID 10/30/24 21:00 11/29/24 20:59 10/30/24 21:12 Donepezil HCl 5 mg DAILY 10/31/24 09:00 11/30/24 08:59 EZETIMIBE 10 mg DAILY 10/31/24 09:00 11/30/24 08:59 Multivitamins Therapeutic 1 tab AM 10/31/24 09:00 11/30/24 08:59 Home Med Calcium Polycarbophil (Fiber Ta... DAILY 10/31/24 09:00 11/30/24 08:59 Home Med Linaclotide (Linzess) 72 MCG DAILY 10/31/24 09:00 11/30/24 08:59 Home Med Mv-Mn/Om3/ Dha/Epa/ Fish/L... DAILY 10/31/24 09:00 11/30/24 08:59 Home Med Vibegron (Gemtesa) 75 MG DAILY 10/31/24 09:00 11/30/24 08:59 Tamsulosin HCl 0.4 mg HS 10/30/24 21:00 11/29/24 20:59 10/30/24 21:12 Pantoprazole Sodium 40 mg Q24H 10/30/24 21:00 11/29/24 20:59 10/30/24 21:12 Review of Systems: CONST: [No fever, fatigue, or weight changes.] EYES: [No recent vision problems.] ENT: [No congestion, ear pain, or sore throat.] C/V: [No chest pain, palpitations, or edema.] RESP: [No cough, congestion, wheezing or shortness of breath.] GI: [No abdominal pain, nausea, vomiting, constipation, or diarrhea.] : [No incontinence or dysuria.] SKIN: [No rash.] NEURO: [No headache, focal numbness or weakness, dizziness, or seizures.] PSYCH: [No depression or anxiety.] HEME: [No abnormal bruising or bleeding.] LYMPH: [No swollen glands.] Physical Examination: GENERAL: [No acute distress.] HEAD: [Normal with no signs of head trauma.] EYES: [PERRLA, EOMI, conjunctiva and sclera normal.] ENT: [Hearing grossly intact, normal oropharynx.] NECK: [Supple without JVD. There is no tenderness, lymphadenopathy, or masses. No thyromegaly. Normal carotid upstrokes without bruits.] LUNGS: [Clear breath sounds bilaterally. There are right basilar rales one third of the way up the chest. No wheezes, or rhonchi.] HEART: [Normal rate and rhythm. Normal S1 and S2 without mumurs, gallop or rub.] VASC: [Peripheral pulses +2 bilaterally.] ABD: [Bowel sounds normal, soft, nontender, no masses, no organomegaly. No audible bruits.] : [Not examined] LYMPH: [No lymphadenopathy noted.] EXT: [No clubbing, cyanosis or edema.] SKIN: [No rashes or lesions noted.] NEURO: [Awake, alert, and oriented x3. No focal sensory or strength deficits noted.] Vital Signs (last 8hr) Date Time Temp Pulse Resp B/P (MAP) Pulse Ox O2 Delivery O2 Flow Rate FiO2 10/31/24 07:43 97.5 53 18 99/63 97 10/31/24 03:38 97.5 105 18 112/69 96 Room Air 10/31/24 02:00 98 Room Air* 0 21 10/31/24 01:38 97.5 110 20 109/72 100 Room Air 10/31/24 01:24 107 16 92/53 95 Room Air* 0 21 Laboratory: [ ] Hematology Labs: Test 10/31/24 05:48 10/30/24 12:17 Range/Units White Blood Count 7.9 4.8-10.8 K/uL Red Blood Count 5.14 4.50-6.20 MIL/uL Hemoglobin 15.5 14.0-18.0 g/dL Hematocrit 47.8 42-54 % Mean Corpuscular Volume 93.0 79-99 fL Mean Corpuscular Hemoglobin 30.2 27.0-33.0 pg Mean Corpuscular Hemoglobin Concent 32.4 32.0-36.0 g/dL Red Cell Distribution Width 13.6 11.0-15.5 % Platelet Count 170 130-400 K/uL Mean Platelet Volume 10.1 7.5-10.5 fL Immature Granulocyte % (Auto) 0.6 0-1 % Neutrophils (%) (Auto) 60.1 40.0-77.0 % Lymphocytes (%) (Auto) 24.8 21.0-51.0 % Monocytes (%) (Auto) 12.7 3.0-13.0 % Eosinophils (%) (Auto) 1.4 0.0-8.0 % Basophils (%) (Auto) 0.4 0.0-5.0 % Neutrophils # (Auto) 4.8 1.8-7.7 K/uL Lymphocytes # (Auto) 2.0 1.0-4.8 K/uL Monocytes # (Auto) 1.0 0.1-1.0 K/uL Eosinophils # (Auto) 0.11 0.00-0.70 K/uL Basophils # (Auto) 0.03 0.00-0.20 K/uL Absolute Immature Granulocyte (auto 0.05 0-1 K/uL Nucleated Red Blood Cells 0.0 0.0-0.19 % Erythrocyte Sedimentation Rate 3 0-20 MM/HR Chemistry Labs: Test 10/31/24 05:48 10/30/24 12:17 Range/Units Sodium Level 143 136-145 mmol/L Potassium Level 5.2 H 3.5-5.1 mmol/L Chloride Level 108 101-111 mmol/L Carbon Dioxide Level 32 21-32 mmol/L Blood Urea Nitrogen 22 H 7-18 mg/dL Creatinine 0.8 0.5-1.3 mg/dL Glomerular Filtration Rate Calc 89 >90 mL/min Random Glucose 94 70-105 mg/dL Total Calcium 8.5 8.5-10.1 mg/dL Magnesium Level 2.10 1.80-2.40 mg/dL Total Bilirubin 1.0 # 0.2-1.0 mg/dL Aspartate Amino Transf (AST/SGOT) 21 10-37 U/L Alanine Aminotransferase (ALT/SGPT) 16 12-78 U/L Alkaline Phosphatase 21 L 50-136 U/L Total Protein 6.0 6.0-8.3 g/dL Albumin 3.0 L 3.5-5.0 g/dL Hemoglobin A1c 5.2 4.0-6.0 % Estimated Average Glucose (eAG) 103 70-126 mg/dL Direct Bilirubin 0.1 0.0-0.3 mg/dL Total Creatine Kinase 37 21-232 U/L Troponin I High Sensitivity 15 4-75 ng/L C-Reactive Protein, Quantitative < 0.50 L 0.5-3.0 mg/L B-Type Natriuretic Peptide 161 H 0-100 pg/mL Procalcitonin < 0.05 L 0.05-0.5 ng/mL Thyroid Stimulating Hormone (TSH) 2.47 # 0.36-3.74 uIU/mL Diagnostics / Radiology: [Copy/Paste Echos/Imaging Report here] Assessment: AF/AFL Plan: Attempt SANDOVAL guided DCCV however patient did not tolerate procedure despite increasing doses of sedation with versed and fentanyl. Unable to obtain adequate images to definitively rule out intracardiac thrombus. Will reschedule SANDOVAL DCCV with anesthesia support tomorrow morning. REGINALDO SMITH DO Oct 31, 2024 09:04
--- NOTE | 2024-10-31 10:00 | NUR ---
DR. SMITH IN TO DO SANDOVAL AND DCCV. CHARGE NURSE, JEYSON HANEY AT BEDSIDE. REFER TO SEDATION FLOW SHEET. UNSUCCESSFUL AND WILL BE RESCHEDULED FOR TOMORROW WITH ANESTHESIA. DR. SMITH SPOKE WITH PATIENT'S AFTERWARDS AND RELATED PLAN OF CARE.
--- NOTE | 2024-10-31 10:30 | NUR ---
APPEARS COMFORTABLE. SBP 90'S. WILL CONTINUE TO MONITOR.
[2024-10-31] MEDS: LIDOCAINE HCL 2% VISCOUS 15 ML UDCUP PO ONE (10:39)
[2024-10-31] MEDS: FENTanyl CITRate PF 50 MCG/1 ML 2ML VIAL IVP ONE (10:39)
[2024-10-31] MEDS: MIDAZOLAM HCL 1 MG/ML 2ML VIAL IVP ONE (10:39)
[2024-10-31] MEDS: MIDAZOLAM HCL 1 MG/ML 2ML VIAL IVP STA (10:44)
--- NOTE | 2024-10-31 11:30 | NUR ---
VISITING WITH SPOUSE, APPEARS COMFORTABLE, TAKING SIPS OF WATER. TELEMETRY ATRIAL FIB HR 90-110'S.
--- NOTE | 2024-10-31 12:30 | NUR ---
HEART HEALTHY DIET GIVEN FOR LUNCH...TOLERATED WELL.
[2024-10-31] MEDS: EZETIMIBE 10 MG TAB PO SCH (14:33)
[2024-10-31] MEDS: doNEPEZil HCL 5 MG TAB PO SCH (14:33)
[2024-10-31] MEDS: MULTIVITAMIN TABLET PO SCH (14:33)
[2024-10-31] MEDS: MV MN PO SCH (14:37)
[2024-10-31] MEDS: EPA PO SCH (14:37)
[2024-10-31] MEDS: FISH PO SCH (14:37)
[2024-10-31] MEDS: ZEA PO SCH (14:37)
[2024-10-31] MEDS: DHA PO SCH (14:37)
[2024-10-31] MEDS: [UNRECOGNIZED DRUG - OTHER] PO SCH (14:37)
[2024-10-31] MEDS: LUT PO SCH (14:37)
--- NOTE | 2024-10-31 15:03 | PN ---
[facility] PROGRESS NOTE Date of Service: Oct 31, 2024 Time of Service: 14:58 SUBJECTIVE: 10/31 patient seen at bedside, no acute events overnight. Cardioversion was attempted today however he was not successful, Cardiology plans to repeat again tomorrow, continue patient on telemetry and monitor. Potassium increased from 4.2 up to 5.2. Echocardiogram pending, we will follow up. REVIEW OF SYSTEMS 12 point review of systems negative unless noted in HPI PHYSICAL EXAM GENERAL APPEARANCE: The patient is awake, alert, and oriented, in no acute cardiopulmonary distress. NEUROLOGICAL: Cranial nerves II-XII grossly intact. Motor is 5/5 in bilateral upper and lower extremities proximal to distal. No sensory deficits. HEENT: Face is symmetric. Pupils are equal and reactive. Extraocular movements are intact. NECK: Supple. No JVD. No thyromegaly. No submental, submandibular, pre- /postauricular, occipital or supraclavicular lymphadenopathy. CHEST: Normal chest expansion. No Telemetry. LUNGS: Absence of any rales, rhonchi or any wheezing. CARDIOVASCULAR: Irregularly irregular. S1 and S2 normal. No appreciable rubs, murmurs or gallops. ABDOMEN: Soft, nontender, and nondistended. There is no rebound, voluntary guarding, or rigidity. : Deferred. No Kulkarni. EXTREMITIES: Non-edematous and not cyanotic. No clubbing. Good capillary refill. SKIN: No skin breakdown. Vital Signs (last 8hr) Date Time Temp Pulse Resp B/P (MAP) Pulse Ox O2 Delivery O2 Flow Rate FiO2 10/31/24 11:46 97.5 110 18 91/52 97 10/31/24 08:00 97 Room Air* 0 21 10/31/24 07:43 97.5 53 18 99/63 97 LABS: Laboratory: Test 10/31/24 05:48 10/30/24 14:55 10/30/24 14:50 10/30/24 12:17 Range/Units White Blood Count 7.9 4.8-10.8 K/uL Red Blood Count 5.14 4.50-6.20 MIL/uL Hemoglobin 15.5 14.0-18.0 g/dL Hematocrit 47.8 42-54 % Mean Corpuscular Volume 93.0 79-99 fL Mean Corpuscular Hemoglobin 30.2 27.0-33.0 pg Mean Corpuscular Hemoglobin Concent 32.4 32.0-36.0 g/dL Red Cell Distribution Width 13.6 11.0-15.5 % Platelet Count 170 130-400 K/uL Mean Platelet Volume 10.1 7.5-10.5 fL Immature Granulocyte % (Auto) 0.6 0-1 % Neutrophils (%) (Auto) 60.1 40.0-77.0 % Lymphocytes (%) (Auto) 24.8 21.0-51.0 % Monocytes (%) (Auto) 12.7 3.0-13.0 % Eosinophils (%) (Auto) 1.4 0.0-8.0 % Basophils (%) (Auto) 0.4 0.0-5.0 % Neutrophils # (Auto) 4.8 1.8-7.7 K/uL Lymphocytes # (Auto) 2.0 1.0-4.8 K/uL Monocytes # (Auto) 1.0 0.1-1.0 K/uL Eosinophils # (Auto) 0.11 0.00-0.70 K/uL Basophils # (Auto) 0.03 0.00-0.20 K/uL Absolute Immature Granulocyte (auto 0.05 0-1 K/uL Nucleated Red Blood Cells 0.0 0.0-0.19 % Sodium Level 143 136-145 mmol/L Potassium Level 5.2 H 3.5-5.1 mmol/L Chloride Level 108 101-111 mmol/L Carbon Dioxide Level 32 21-32 mmol/L Blood Urea Nitrogen 22 H 7-18 mg/dL Creatinine 0.8 0.5-1.3 mg/dL Glomerular Filtration Rate Calc 89 >90 mL/min Random Glucose 94 70-105 mg/dL Total Calcium 8.5 8.5-10.1 mg/dL Magnesium Level 2.10 1.80-2.40 mg/dL Total Bilirubin 1.0 # 0.2-1.0 mg/dL Aspartate Amino Transf (AST/SGOT) 21 10-37 U/L Alanine Aminotransferase (ALT/SGPT) 16 12-78 U/L Alkaline Phosphatase 21 L 50-136 U/L Total Protein 6.0 6.0-8.3 g/dL Albumin 3.0 L 3.5-5.0 g/dL Urine Color YELLOW YELLOW Urine Appearance CLEAR CLEAR Urine pH 6.0 5.0-8.0 Urine Specific [place] 1.029 1.001-1.031 Urine Protein 10 H NEGATIVE mg/dL Urine Glucose (UA) NEGATIVE NEGATIVE mg/dL Urine Ketones 5 H NEGATIVE mg/dL Urine Occult Blood NEGATIVE NEGATIVE Urine Nitrate NEGATIVE NEGATIVE Urine Bilirubin NEGATIVE NEGATIVE mg/dL Urine Urobilinogen 0.2 0.2-1.0 mg/dL Urine Leukocyte Esterase NEGATIVE NEGATIVE [place]/uL Urine RBC 2-5 H 0-1 /HPF Urine WBC 0-1 0-1 /HPF Urine Squamous Epithelial Cells RARE 0-2 /HPF Urine Bacteria None None Seen /HPF Urine Other Casts 1 None Seen /LPF Influenza Type A Antigen Negative For Type A NEGATIVE Influenza Type B Antigen Negative For Type B NEGATIVE SARS-CoV-2, RNA, NAAT NEGATIVE SARS CoV-2 NEGATIVE Erythrocyte Sedimentation Rate 3 0-20 MM/HR Hemoglobin A1c 5.2 4.0-6.0 % Estimated Average Glucose (eAG) 103 70-126 mg/dL Direct Bilirubin 0.1 0.0-0.3 mg/dL Total Creatine Kinase 37 21-232 U/L Troponin I High Sensitivity 15 4-75 ng/L C-Reactive Protein, Quantitative < 0.50 L 0.5-3.0 mg/L B-Type Natriuretic Peptide 161 H 0-100 pg/mL Procalcitonin < 0.05 L 0.05-0.5 ng/mL Thyroid Stimulating Hormone (TSH) 2.47 # 0.36-3.74 uIU/mL Current Medications Medications (Trade) Dose Ordered Sig/Naif Route PRN Reason Start Time Stop Time Status Last Admin Dose Admin Acetaminophen (TYLenol 500MG TAB) 500 mg Q6H PRN PO MILD PAIN (1-3) 10/30/24 15:00 11/29/24 14:59 Donepezil HCl (ARIcept 5MG TAB) 5 mg DAILY PO 10/31/24 09:00 11/30/24 08:59 10/31/24 14:33 5 MG Enoxaparin Sodium (Lovenox (Pharmacy To Dose)) 1 unit BID SQ 10/30/24 21:00 10/30/24 14:57 DC Enoxaparin Sodium (Lovenox) 100 mg BID SQ 10/30/24 21:00 11/29/24 20:59 10/31/24 14:35 100 MG EZETIMIBE (Zetia) 10 mg DAILY PO 10/31/24 09:00 11/30/24 08:59 10/31/24 14:33 10 MG Famotidine (Pepcid 20mg Vial) 20 mg BID IV 10/30/24 21:00 10/30/24 20:45 DC Home Med (Home Medication) Calcium Polycarbophil (Fiber Ta... DAILY PO 10/31/24 09:00 11/30/24 08:59 Home Med (Home Medication) Linaclotide (Linzess) 72 MCG DAILY PO 10/31/24 09:00 11/30/24 08:59 Home Med (Home Medication) Mv-Mn/Om3/ Dha/Epa/ Fish/L... DAILY PO 10/31/24 09:00 11/30/24 08:59 Home Med (Home Medication) Vibegron (Gemtesa) 75 MG DAILY PO 10/31/24 09:00 11/30/24 08:59 Magnesium Sulfate 50 ml @ 0 mls/hr PROTOCOL IV 10/30/24 15:00 11/29/24 14:59 10/30/24 16:14 25 MLS/HR Metoprolol Tartrate (loprESSOR) 2.5 mg Q6H PRN IV for HR> 130 10/30/24 15:00 11/29/24 14:59 Midazolam HCl (Versed) 2 mg ONCE STAT IVP 10/31/24 10:40 10/31/24 10:42 DC 10/31/24 10:44 2 MG Multivitamins Therapeutic (Multivitamin Tablet) 1 tab AM PO 10/31/24 09:00 11/30/24 08:59 10/31/24 14:33 1 TAB Ondansetron HCl (zoFRAN 4MG INJ) 4 mg Q6H PRN IVP NAUSEA/VOMITING 10/30/24 15:00 11/29/24 14:59 Pantoprazole Sodium (PROTonix 40MG INJ) 40 mg Q24H IVP 10/30/24 21:00 11/29/24 20:59 10/30/24 21:12 40 MG Potassium Chloride 100 ml @ 100 mls/hr AD PRN IV POTASSIUM PROTOCOL 10/30/24 15:00 11/29/24 14:59 Potassium Chloride (K-Dur/Klor-Con 20meq) 20 meq AD PRN PO POTASSIUM PROTOCOL 10/30/24 15:00 11/29/24 14:59 Potassium Chloride (KCl 10% Elixir 20meq/15ml) 20 meq AD PRN PO POTASSIUM PROTOCOL 10/30/24 15:00 11/29/24 14:59 Sodium Chloride 1,000 ml @ 70 mls/hr [id number] IV 10/30/24 15:00 12/01/24 21:00 10/31/24 14:35 70 MLS/HR Tamsulosin HCl (FloMAX) 0.4 mg HS PO 10/30/24 21:00 11/29/24 20:59 10/30/24 21:12 0.4 MG DIAGNOSTICS / RADIOLOGY: [ ] ASSESSMENT: Paroxysmal atrial flutter with episodes of RVR, POA History of paroxysmal atrial fibrillation with prior history of cardioversions and ablation, POA Generalized fatigue, POA History of BPH, POA History of urinary urgency, POA PLAN: Continue telemetry We will place p.r.n. orders for IV metoprolol 2.5 mg q.6 hours p.r.n. for heart rate greater than 130, this was discussed with Cardiology Repeat SANDOVAL tomorrow Appreciate recommendations by Cardiology Continue IV hydration with NS at 70 mL/hour, BUN is also noted to be elevated concerning for prerenal azotemia All labs will be repeated in the morning Patient to continue with all home medications Patient will be started on full-dose anticoagulation with Lovenox 1 mg/kg tonight, patient will need prescription for Eliquis on discharge post cardioversion Disposition: Pending improvement in clinical status, cardioversion ISRAEL HOPE MD Oct 31, 2024 15:03
--- NOTE | 2024-10-31 18:02 | NUR ---
cm note met with pt and states lives with spouse independent with adls/ambulation. very active walks 2 miles daily. ddrives. dcplan is home. states no dc needs. Addendum: 10/31/24 at 1809 by ANTONELLA ALBRECHT CM Amended: Links added.
[2024-11-01] VITALS (8 sets, daily range): BP systolic 93–170; BP diastolic 61–88; PULSE 95–112; RESP 18–20; TEMP 97.7–98.8; O2SAT 100
[2024-11-01] MEDS ORDERED: proPOFol 10 MG/ML 20ML VIAL IV ONE (07:55)
--- NOTE | 2024-11-01 08:10 | NUR ---
DR. SMITH IN TO DO SANDOVAL AT BEDSIDE ALONG WITH TRAFFIC CONTROL FLAGGER, OCTAVIO AND KENNEL OPERATOR, JOANA. REFER TO SEDATION FLOW SHEET.
--- NOTE | 2024-11-01 08:30 | NUR ---
TOLERATED SANDOVAL WELL. WILL WAIT 1 HOUR PRIOR TO GIVING CLEAR LIQUIDS MEAL AND ADVANCE TOLERATED.
[2024-11-01] MEDS: LIDOCAINE HCL 2% VISCOUS 15 ML UDCUP PO ONE (10:17)
--- NOTE | 2024-11-01 12:43 | PN ---
[facility] CARDIOLOGY PROGRESS NOTE Date Patient Seen: Nov 01, 2024 Time of Visit: 12:18 Interval History: This is an 79 year old male followed by Dr. Stone and Dr. Yunior Frank with a history of paroxysmal atrial fibrillation status post catheter ablation done in 2009 with redo catheter ablation 11/28/2022. He underwent cardioversion 02/26/2023 secondary to persistent atypical atrial flutter. He also has a history of nonobstructive coronary artery disease with 10-20% stenosis in the proximal LAD, 20-30% stenosis in the mid LAD, 20% stenosis in the proximal RCA, and 20% stenosis in the distal RCA ([facility] 09/10/2022). His most recent echocardiogram 12/02/2023 demonstrated an ejection fraction of 55% with a mildly dilated left atrium, mild aortic regurgitation and normal pericardium. Patient discontinued his amiodarone in May due to complaints of low energy and lightheadedness, and has been monitoring his heart rhythm via his [employer] smartwatch. Additionally, he discontinued his Eliquis due to easy bruising. The patient was scheduled for an implantable loop recorder in September however missed the appointment. He presented to the [facility] on 10/30/24 complaining of palpitations and alert from his watch of recurrence of atrial fibrillation the evening prior. He was triaged to the emergency department for further management. He underwent attempt at SANDOVAL for possible cardioversion on 10/31/2024 unable to obtain adequate images and patient was unable to tolerate procedure despite increasing doses of sedation. He underwent a SANDOVAL this morning with anesthesia demonstrating left atrial appendage thrombus. Plans for cardioversion were deferred. He has had periods of atrial fibrillation with rapid ventricular response into the 130 beat per minute range when getting up to the bathroom. Otherwise heart rate has been in the 90 beat per minute range at rest. He offers no complaints of chest pain or shortness of breath. Physical Examination: GENERAL: No acute distress. HEAD: Normal with no signs of head trauma. EYES: PERRLA, EOMI, conjunctiva and sclera normal. NECK: Supple without JVD. There is no tenderness, lymphadenopathy, or masses. No thyromegaly. Normal carotid upstrokes without bruits. LUNGS: Clear breath sounds bilaterally. No wheezes, or rhonchi. HEART: Irregularly irregular underlying rhythm. Normal S1 and S2 without murmurs, gallop or rub. VASC: Peripheral pulses +2 bilaterally. EXT: No clubbing, cyanosis or edema. NEURO: Awake, alert, and oriented x3. No focal neurological deficits noted. Laboratory: Hematology Labs: Test 10/31/24 05:48 Range/Units White Blood Count 7.9 4.8-10.8 K/uL Red Blood Count 5.14 4.50-6.20 MIL/uL Hemoglobin 15.5 14.0-18.0 g/dL Hematocrit 47.8 42-54 % Mean Corpuscular Volume 93.0 79-99 fL Mean Corpuscular Hemoglobin 30.2 27.0-33.0 pg Mean Corpuscular Hemoglobin Concent 32.4 32.0-36.0 g/dL Red Cell Distribution Width 13.6 11.0-15.5 % Platelet Count 170 130-400 K/uL Mean Platelet Volume 10.1 7.5-10.5 fL Immature Granulocyte % (Auto) 0.6 0-1 % Neutrophils (%) (Auto) 60.1 40.0-77.0 % Lymphocytes (%) (Auto) 24.8 21.0-51.0 % Monocytes (%) (Auto) 12.7 3.0-13.0 % Eosinophils (%) (Auto) 1.4 0.0-8.0 % Basophils (%) (Auto) 0.4 0.0-5.0 % Neutrophils # (Auto) 4.8 1.8-7.7 K/uL Lymphocytes # (Auto) 2.0 1.0-4.8 K/uL Monocytes # (Auto) 1.0 0.1-1.0 K/uL Eosinophils # (Auto) 0.11 0.00-0.70 K/uL Basophils # (Auto) 0.03 0.00-0.20 K/uL Absolute Immature Granulocyte (auto 0.05 0-1 K/uL Nucleated Red Blood Cells 0.0 0.0-0.19 % Chemistry Labs: Test 10/31/24 05:48 Range/Units Sodium Level 143 136-145 mmol/L Potassium Level 5.2 H 3.5-5.1 mmol/L Chloride Level 108 101-111 mmol/L Carbon Dioxide Level 32 21-32 mmol/L Blood Urea Nitrogen 22 H 7-18 mg/dL Creatinine 0.8 0.5-1.3 mg/dL Glomerular Filtration Rate Calc 89 >90 mL/min Random Glucose 94 70-105 mg/dL Total Calcium 8.5 8.5-10.1 mg/dL Magnesium Level 2.10 1.80-2.40 mg/dL Total Bilirubin 1.0 # 0.2-1.0 mg/dL Aspartate Amino Transf (AST/SGOT) 21 10-37 U/L Alanine Aminotransferase (ALT/SGPT) 16 12-78 U/L Alkaline Phosphatase 21 L 50-136 U/L Total Protein 6.0 6.0-8.3 g/dL Albumin 3.0 L 3.5-5.0 g/dL Diagnostics / Radiology: SANDOVAL report 11/01/2024 is pending Impression and Plan: Persistent atrial fibrillation with intermittent rapid ventricular response: 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 and we will transitioned this to Eliquis 5 mg p.o. b.i.d. -the patient previously had discontinued his Eliquis due to easy bruising -begin metoprolol 25 mg p.o. b.i.d. and assess heart rate response -he has had rare episodes of breakthrough atrial fibrillation reporting his last atrial fibrillation episode was about one year ago. Pill in the pocket strategy may work. Defer to Dr. Frank for further management Comorbidities: History of paroxysmal atrial fibrillation status post catheter ablation in 2009 with redo catheter ablation 11/2022 Persistent atypical atrial flutter February 23, 2023 status post direct current cardioversion Nonobstructive coronary artery disease with 10-20% stenosis in the proximal LAD, 20-30% stenosis in the mid LAD, 20% stenosis in the proximal RCA, and 20% stenosis in the distal RCA ([facility] 09/10/2022) Normal LVEF of 55% by 2D echocardiogram 12/02/2023 with a mildly dilated left atrium, mild aortic regurgitation and normal pericardium. BPH PHYSICIAN ATTESTATION OF PHYSICIAN CAROUSEL ATTENDANT DOCUMENTATION: I attest that I was physically present for the sanford portions of the service and evaluated the patient with the Physician Drug Safety Scientist, and I reviewed and discussed the case with the Physician Drug Safety Scientist and made modifications to the Physician Drug Safety Scientist's findings and plans of care as documented above DIOR MILLER Nov 01, 2024 12:43 ARACELI RODRIGUEZ MD Nov 01, 2024 16:12
--- NOTE | 2024-11-01 12:48 | NUR ---
TOLERATED LIQUID DIET WELL. DENIES CHEST PAIN OR SHORTNESS OF BREATH. TELE READING ATRIAL FIB HR 98. WILL CONTINUE TO MONITOR.
[2024-11-01] MEDS: metoPROLOL tartRATE 25 MG TAB PO ONE ×2 (14:33→20:50)
--- NOTE | 2024-11-01 14:56 | PN ---
[facility] PROGRESS NOTE Date of Service: Nov 01, 2024 Time of Service: 14:54 SUBJECTIVE: 10/31 patient seen at bedside, no acute events overnight. Cardioversion was attempted today however he was not successful, Cardiology plans to repeat again tomorrow, continue patient on telemetry and monitor. Potassium increased from 4.2 up to 5.2. Echocardiogram pending, we will follow up. 11/01 seen at bedside, no acute events overnight, cardioversion was not successful today, maged was done showing atrial thrombus. Cardiology recommending medical managed at this time, p.o. medications have been adjusted, we will continue to monitor and reassess tomorrow. Start metoprolol 25 mg twice daily per Cardiology. REVIEW OF SYSTEMS 12 point review of systems negative unless noted in HPI PHYSICAL EXAM GENERAL APPEARANCE: The patient is awake, alert, and oriented, in no acute cardiopulmonary distress. NEUROLOGICAL: Cranial nerves II-XII grossly intact. Motor is 5/5 in bilateral upper and lower extremities proximal to distal. No sensory deficits. HEENT: Face is symmetric. Pupils are equal and reactive. Extraocular movements are intact. NECK: Supple. No JVD. No thyromegaly. No submental, submandibular, pre- /postauricular, occipital or supraclavicular lymphadenopathy. CHEST: Normal chest expansion. No Telemetry. LUNGS: Absence of any rales, rhonchi or any wheezing. CARDIOVASCULAR: Irregularly irregular. S1 and S2 normal. No appreciable rubs, murmurs or gallops. ABDOMEN: Soft, nontender, and nondistended. There is no rebound, voluntary guarding, or rigidity. : Deferred. No Kulkarni. EXTREMITIES: Non-edematous and not cyanotic. No clubbing. Good capillary refill. SKIN: No skin breakdown. Vital Signs (last 8hr) Date Time Temp Pulse Resp B/P (MAP) Pulse Ox O2 Delivery O2 Flow Rate FiO2 11/01/24 12:15 97.7 105 20 127/71 100 Room Air 11/01/24 08:00 100 Room Air* 0 21 11/01/24 07:40 98.8 95 20 93/69 100 Room Air LABS: Laboratory: Test 10/31/24 05:48 10/30/24 14:55 Range/Units White Blood Count 7.9 4.8-10.8 K/uL Red Blood Count 5.14 4.50-6.20 MIL/uL Hemoglobin 15.5 14.0-18.0 g/dL Hematocrit 47.8 42-54 % Mean Corpuscular Volume 93.0 79-99 fL Mean Corpuscular Hemoglobin 30.2 27.0-33.0 pg Mean Corpuscular Hemoglobin Concent 32.4 32.0-36.0 g/dL Red Cell Distribution Width 13.6 11.0-15.5 % Platelet Count 170 130-400 K/uL Mean Platelet Volume 10.1 7.5-10.5 fL Immature Granulocyte % (Auto) 0.6 0-1 % Neutrophils (%) (Auto) 60.1 40.0-77.0 % Lymphocytes (%) (Auto) 24.8 21.0-51.0 % Monocytes (%) (Auto) 12.7 3.0-13.0 % Eosinophils (%) (Auto) 1.4 0.0-8.0 % Basophils (%) (Auto) 0.4 0.0-5.0 % Neutrophils # (Auto) 4.8 1.8-7.7 K/uL Lymphocytes # (Auto) 2.0 1.0-4.8 K/uL Monocytes # (Auto) 1.0 0.1-1.0 K/uL Eosinophils # (Auto) 0.11 0.00-0.70 K/uL Basophils # (Auto) 0.03 0.00-0.20 K/uL Absolute Immature Granulocyte (auto 0.05 0-1 K/uL Nucleated Red Blood Cells 0.0 0.0-0.19 % Sodium Level 143 136-145 mmol/L Potassium Level 5.2 H 3.5-5.1 mmol/L Chloride Level 108 101-111 mmol/L Carbon Dioxide Level 32 21-32 mmol/L Blood Urea Nitrogen 22 H 7-18 mg/dL Creatinine 0.8 0.5-1.3 mg/dL Glomerular Filtration Rate Calc 89 >90 mL/min Random Glucose 94 70-105 mg/dL Total Calcium 8.5 8.5-10.1 mg/dL Magnesium Level 2.10 1.80-2.40 mg/dL Total Bilirubin 1.0 # 0.2-1.0 mg/dL Aspartate Amino Transf (AST/SGOT) 21 10-37 U/L Alanine Aminotransferase (ALT/SGPT) 16 12-78 U/L Alkaline Phosphatase 21 L 50-136 U/L Total Protein 6.0 6.0-8.3 g/dL Albumin 3.0 L 3.5-5.0 g/dL Urine Color YELLOW YELLOW Urine Appearance CLEAR CLEAR Urine pH 6.0 5.0-8.0 Urine Specific [place] 1.029 1.001-1.031 Urine Protein 10 H NEGATIVE mg/dL Urine Glucose (UA) NEGATIVE NEGATIVE mg/dL Urine Ketones 5 H NEGATIVE mg/dL Urine Occult Blood NEGATIVE NEGATIVE Urine Nitrate NEGATIVE NEGATIVE Urine Bilirubin NEGATIVE NEGATIVE mg/dL Urine Urobilinogen 0.2 0.2-1.0 mg/dL Urine Leukocyte Esterase NEGATIVE NEGATIVE [place]/uL Urine RBC 2-5 H 0-1 /HPF Urine WBC 0-1 0-1 /HPF Urine Squamous Epithelial Cells RARE 0-2 /HPF Urine Bacteria None None Seen /HPF Urine Other Casts 1 None Seen /LPF Current Medications Medications (Trade) Dose Ordered Sig/Naif Route PRN Reason Start Time Stop Time Status Last Admin Dose Admin Acetaminophen (TYLenol 500MG TAB) 500 mg Q6H PRN PO MILD PAIN (1-3) 10/30/24 15:00 11/29/24 14:59 Donepezil HCl (ARIcept 5MG TAB) 5 mg DAILY PO 10/31/24 09:00 11/30/24 08:59 11/01/24 14:34 5 MG Enoxaparin Sodium (Lovenox (Pharmacy To Dose)) 1 unit BID SQ 10/30/24 21:00 10/30/24 14:57 DC Enoxaparin Sodium (Lovenox) 100 mg BID SQ 10/30/24 21:00 11/29/24 20:59 11/01/24 10:17 100 MG EZETIMIBE (Zetia) 10 mg DAILY PO 10/31/24 09:00 11/30/24 08:59 11/01/24 14:34 10 MG Famotidine (Pepcid 20mg Vial) 20 mg BID IV 10/30/24 21:00 10/30/24 20:45 DC Home Med (Home Medication) Calcium Polycarbophil (Fiber Ta... DAILY PO 10/31/24 09:00 11/30/24 08:59 Home Med (Home Medication) Linaclotide (Linzess) 72 MCG DAILY PO 10/31/24 09:00 11/30/24 08:59 Home Med (Home Medication) Mv-Mn/Om3/ Dha/Epa/ Fish/L... DAILY PO 10/31/24 09:00 11/30/24 08:59 Home Med (Home Medication) Vibegron (Gemtesa) 75 MG DAILY PO 10/31/24 09:00 11/30/24 08:59 Magnesium Sulfate 50 ml @ 0 mls/hr PROTOCOL IV 10/30/24 15:00 11/29/24 14:59 10/30/24 16:14 25 MLS/HR Metoprolol Tartrate (loprESSOR) 2.5 mg Q6H PRN IV for HR> 130 10/30/24 15:00 11/29/24 14:59 Metoprolol Tartrate (loprESSOR) 25 mg BID PO 11/02/24 09:00 12/02/24 08:59 Midazolam HCl (Versed) 2 mg ONCE STAT IVP 10/31/24 10:40 10/31/24 10:42 DC 10/31/24 10:44 2 MG Multivitamins Therapeutic (Multivitamin Tablet) 1 tab AM PO 10/31/24 09:00 11/30/24 08:59 11/01/24 14:34 1 TAB Ondansetron HCl (zoFRAN 4MG INJ) 4 mg Q6H PRN IVP NAUSEA/VOMITING 10/30/24 15:00 11/29/24 14:59 Pantoprazole Sodium (PROTonix 40MG INJ) 40 mg Q24H IVP 10/30/24 21:00 11/29/24 20:59 10/31/24 21:06 40 MG Potassium Chloride 100 ml @ 100 mls/hr AD PRN IV POTASSIUM PROTOCOL 10/30/24 15:00 11/29/24 14:59 Potassium Chloride (K-Dur/Klor-Con 20meq) 20 meq AD PRN PO POTASSIUM PROTOCOL 10/30/24 15:00 11/29/24 14:59 Potassium Chloride (KCl 10% Elixir 20meq/15ml) 20 meq AD PRN PO POTASSIUM PROTOCOL 10/30/24 15:00 11/29/24 14:59 Sodium Chloride 1,000 ml @ 70 mls/hr [id number] IV 10/30/24 15:00 12/01/24 21:00 11/01/24 14:35 70 MLS/HR Tamsulosin HCl (FloMAX) 0.4 mg HS PO 10/30/24 21:00 11/29/24 20:59 10/31/24 21:05 0.4 MG DIAGNOSTICS / RADIOLOGY: [ ] ASSESSMENT: Paroxysmal atrial flutter with episodes of RVR, POA History of paroxysmal atrial fibrillation with prior history of cardioversions and ablation, POA Generalized fatigue, POA History of BPH, POA History of urinary urgency, POA PLAN: Continue telemetry We will place p.r.n. orders for IV metoprolol 2.5 mg q.6 hours p.r.n. for heart rate greater than 130, this was discussed with Cardiology Start metoprolol 25mg BID Appreciate recommendations by Cardiology Continue IV hydration with NS at 70 mL/hour, BUN is also noted to be elevated concerning for prerenal azotemia All labs will be repeated in the morning Patient to continue with all home medications Patient will be started on full-dose anticoagulation with Lovenox 1 mg/kg tonight, patient will need prescription for Eliquis on discharge post cardioversion Disposition: Pending improvement in clinical status ISRAEL HOPE MD Nov 01, 2024 14:56
--- NOTE | 2024-11-01 16:00 | HMCSR ---
APPROVED REPORT EXAM: Transesophageal echocardiogram with color flow Doppler. INDICATION ICD: Atrial Fibrillation Reason For Test : Rule out Intracardiac Thrombus. PROCEDURE After obtaining informed consent, patient underwent transesophageal echo in the Patient Room 227 . 15 mL 2% Viscous Lidocaine was given as a topical anesthetic prior to the administration of the consc ious sedation. Type of Sedation: Conscious Sedation Sedation was administered by LYNDON Reynolds. Sedation was achieved with refer to patient chart intravenously. Transesophageal probe was inserted and advanced into esophagus without difficulty by Dr. Xie. SANDOVAL was performed and images were obtained, probe was removed withoutwith complications. Complication encountered: patient continuously coughing throughout procedure.. Throughout the procedure, the blood pressure, pulse oximetry, cardiac rhythm, and rate were monitored . The patient tolerated the procedure without adverse effects. Recovery from conscious sedation was une ventful and vital signs were stable. Left Ventricle Left ventricle is not well visualized. Right Ventricle Right ventricle is not well visualized. Atria Left atrium is not well visualized. Left atrial appendage not well visualized. Aortic Valve Aortic valve is grossly normal in structure. Mitral Valve Mitral valve is not well visualized. Tricuspid Valve Tricuspid valve is not well visualized. Pulmonic Valve Pulmonic valve is not well visualized. Pericardium No pericardial effusion. Conclusion Patient unable to tolerate transesophageal echocardiogram under conscious sedation with Versed and Fe ntanyl due to coughing/gagging. Unable to obtain adequate images to definitively rule out intracardia c thrombus. Probe removed without complication. Patient to be rescheduled with anesthesia support.
--- NOTE | 2024-11-01 16:05 | HMCSR ---
APPROVED REPORT EXAM: Transesophageal echocardiogram with color flow Doppler. INDICATION ICD: Unspecified atrial flutter I48.92 Reason For Test : Rule out Intracardiac Thrombus. PROCEDURE After obtaining informed consent, patient underwent transesophageal echo in the Patient Room 227. 15 mL 2% Viscous Lidocaine was given as a topical anesthetic prior to the administration of the consc ious sedation. Type of Sedation: General Anesthesia Sedation was administered by Jordi Arguello CRNA. Sedation was achieved with refer to patient chart intravenously. Transesophageal probe was inserted and advanced into esophagus without difficulty by Dr. Xie. SANDOVAL was performed and images were obtained, probe was removed without complications. Throughout the procedure, the blood pressure, pulse oximetry, cardiac rhythm, and rate were monitored . The patient tolerated the procedure without adverse effects. Recovery from conscious sedation was une ventful and vital signs were stable. Left Ventricle Left ventricular cavity size is normal. There is normal left ventricular wall thickness. Left ventric ular systolic function is severely reduced. LVEF is 25-30%. Right Ventricle The right ventricle is normal size. The right ventricular systolic function is normal. Atria The left atrium is mildly dilated. Thrombus is present in the left atrial appendage, measuring <1cm d imension.. The interatrial septum is intact with no evidence for an atrial septal defect. The right a trium is moderately dilated. Aortic Valve The aortic valve is normal in structure and function. Trace aortic regurgitation. There is no aortic valvular stenosis. Mitral Valve Mitral valve leaflets open well. Mitral regurgitation is mild. There is no mitral valve stenosis. Tricuspid Valve The tricuspid valve is normal in structure and function. There is trace tricuspid valve regurgitation noted. Pulmonic Valve The pulmonary valve appears normal. There is no pulmonic valvular regurgitation. Great Vessels The aortic root is normal in size. Normal caliber descending thoracic aorta. Minimal plaque without d issection, ulceration or aneruysm. Pericardium No pericardial effusion. Conclusion Underlying rhythm is atrial fibrillation with rapid ventricular response. Left ventricular systolic function is severely reduced. LVEF is 25-30%. This may be underestimated du e to underlying rapid ventricular rate. The left atrium is mildly dilated. Thrombus is present in the left atrial appendage, measuring <1cm dimension. The interatrial septum is intact with no evidence for an atrial septal defect. The right atrium is moderately dilated. Trace aortic regurgitation. Mitral regurgitation is mild. Unable to perform direct current cardioversion due to presence of left atrial appendage thrombus.
[2024-11-02] VITALS (9 sets, daily range): BP systolic 102–134; BP diastolic 54–81; PULSE 52–117; RESP 18; TEMP 97.4–98.4; O2SAT 97
[2024-11-02] MEDS ORDERED: metoPROLOL tartRATE 25 MG TAB PO SCH (09:00)
[2024-11-02 09:13] LABS: HEMATOCRIT 40.6 % (42-54); MEAN CORPUSCULAR HEMOGLOBIN 29.8 pg (27.0-33.0); MEAN CORPUSCULAR HGB CONC 32.3 g/dL (32.0-36.0); MEAN CORPUSCULAR VOLUME 92.3 fL (79-99); RED BLOOD CELL COUNT(AUTO) 4.4 MIL/uL (4.50-6.20); RED CELL DISTRIBUTION WIDTH 13.5 % (11.0-15.5); WHITE BLOOD COUNT (AUTO) 6.7 K/uL (4.8-10.8)
[2024-11-02 09:20] LABS: CREATININE 0.9 mg/dL (0.5-1.3); POTASSIUM 3.7 mmol/L (3.5-5.1)
[2024-11-02 09:25] LABS: ALBUMIN 2.7 g/dL (3.5-5.0); BILIRUBIN,TOTAL 0.9 mg/dL (0.2-1.0); MAGNESIUM 1.6 mg/dL (1.80-2.40); TOTAL PROTEIN, SERUM 5.5 g/dL (6.0-8.3)
--- NOTE | 2024-11-02 09:25 | PN ---
[facility] PROGRESS NOTE Date of Service: Nov 02, 2024 Time of Service: 09:22 SUBJECTIVE: 10/31 patient seen at bedside, no acute events overnight. Cardioversion was attempted today however he was not successful, Cardiology plans to repeat again tomorrow, continue patient on telemetry and monitor. Potassium increased from 4.2 up to 5.2. Echocardiogram pending, we will follow up. 11/01 seen at bedside, no acute events overnight, cardioversion was not successful today, maged was done showing atrial thrombus. Cardiology recommending medical managed at this time, p.o. medications have been adjusted, we will continue to monitor and reassess tomorrow. Start metoprolol 25 mg twice daily per Cardiology. 11/02 patient is seen and examined, eating lunch, comfortable in bed. BP 10/10/68, heart rate of 52, rest of the vital signs unremarkable. CBC with hemoglobin 13.1, hematocrit 40.6, WBC 6.7, platelet count of 154. CMP with sodium 140, potassium 3.7, BUN 17, creatinine 0.9. MAGED done, showing atrial thrombus, Patient started on metoprolol 25 mg p.o. b.i.d. patient also on Eliquis 5 mg p.o. b.i.d. REVIEW OF SYSTEMS 12 point review of systems negative unless noted in HPI PHYSICAL EXAM GENERAL APPEARANCE: The patient is awake, alert, and oriented, in no acute cardiopulmonary distress. NEUROLOGICAL: Cranial nerves II-XII grossly intact. Motor is 5/5 in bilateral upper and lower extremities proximal to distal. No sensory deficits. HEENT: Face is symmetric. Pupils are equal and reactive. Extraocular movements are intact. NECK: Supple. No JVD. No thyromegaly. No submental, submandibular, pre-/postauricular, occipital or supraclavicular lymphadenopathy. CHEST: Normal chest expansion. No Telemetry. LUNGS: Absence of any rales, rhonchi or any wheezing. CARDIOVASCULAR: Irregularly irregular. S1 and S2 normal. No appreciable rubs, murmurs or gallops. ABDOMEN: Soft, nontender, and nondistended. There is no rebound, voluntary guarding, or rigidity. : Deferred. No Kulkarni. EXTREMITIES: Non-edematous and not cyanotic. No clubbing. Good capillary refill. SKIN: No skin breakdown. Vital Signs (last 8hr) Date Time Temp Pulse Resp B/P (MAP) Pulse Ox O2 Delivery O2 Flow Rate FiO2 11/02/24 08:44 98.2 52 18 104/69 96 Room Air 11/02/24 03:32 98.4 108 18 112/76 99 Room Air LABS: Laboratory: Test 11/02/24 08:48 Range/Units White Blood Count 6.7 4.8-10.8 K/uL Red Blood Count 4.40 L 4.50-6.20 MIL/uL Hemoglobin 13.1 L 14.0-18.0 g/dL Hematocrit 40.6 L 42-54 % Mean Corpuscular Volume 92.3 79-99 fL Mean Corpuscular Hemoglobin 29.8 27.0-33.0 pg Mean Corpuscular Hemoglobin Concent 32.3 32.0-36.0 g/dL Red Cell Distribution Width 13.5 11.0-15.5 % Platelet Count 154 130-400 K/uL Mean Platelet Volume 10.3 7.5-10.5 fL Nucleated Red Blood Cells 0.0 0.0-0.19 % Sodium Level 140 136-145 mmol/L Potassium Level 3.7 3.5-5.1 mmol/L Chloride Level 107 101-111 mmol/L Carbon Dioxide Level 26 21-32 mmol/L Blood Urea Nitrogen 17 7-18 mg/dL Creatinine 0.9 0.5-1.3 mg/dL Glomerular Filtration Rate Calc 86 >90 mL/min Random Glucose 121 H 70-105 mg/dL Total Calcium 7.9 L 8.5-10.1 mg/dL Current Medications Medications (Trade) Dose Ordered Sig/Naif Route PRN Reason Start Time Stop Time Status Last Admin Dose Admin Acetaminophen (TYLenol 500MG TAB) 500 mg Q6H PRN PO MILD PAIN (1-3) 10/30/24 15:00 11/29/24 14:59 Apixaban (EliquIS) 5 mg BID PO 11/02/24 09:00 12/02/24 08:59 Donepezil HCl (ARIcept 5MG TAB) 5 mg DAILY PO 10/31/24 09:00 11/30/24 08:59 11/01/24 14:34 5 MG Enoxaparin Sodium (Lovenox (Pharmacy To Dose)) 1 unit BID SQ 10/30/24 21:00 10/30/24 14:57 DC Enoxaparin Sodium (Lovenox) 100 mg BID SQ 10/30/24 21:00 11/02/24 08:28 DC 11/01/24 20:50 100 MG EZETIMIBE (Zetia) 10 mg DAILY PO 10/31/24 09:00 11/30/24 08:59 11/01/24 14:34 10 MG Famotidine (Pepcid 20mg Vial) 20 mg BID IV 10/30/24 21:00 10/30/24 20:45 DC Home Med (Home Medication) Calcium Polycarbophil (Fiber Ta... DAILY PO 10/31/24 09:00 11/30/24 08:59 Home Med (Home Medication) Linaclotide (Linzess) 72 MCG DAILY PO 10/31/24 09:00 11/30/24 08:59 Home Med (Home Medication) Mv-Mn/Om3/ Dha/Epa/ Fish/L... DAILY PO 10/31/24 09:00 11/30/24 08:59 Home Med (Home Medication) Vibegron (Gemtesa) 75 MG DAILY PO 10/31/24 09:00 11/30/24 08:59 Magnesium Sulfate 50 ml @ 0 mls/hr PROTOCOL IV 10/30/24 15:00 11/29/24 14:59 10/30/24 16:14 25 MLS/HR Metoprolol Tartrate (loprESSOR) 2.5 mg Q6H PRN IV for HR> 130 10/30/24 15:00 11/29/24 14:59 Metoprolol Tartrate (loprESSOR) 25 mg BID PO 11/02/24 09:00 12/02/24 08:59 Midazolam HCl (Versed) 2 mg ONCE STAT IVP 10/31/24 10:40 10/31/24 10:42 DC 10/31/24 10:44 2 MG Multivitamins Therapeutic (Multivitamin Tablet) 1 tab AM PO 10/31/24 09:00 11/30/24 08:59 11/01/24 14:34 1 TAB Ondansetron HCl (zoFRAN 4MG INJ) 4 mg Q6H PRN IVP NAUSEA/VOMITING 10/30/24 15:00 11/29/24 14:59 Pantoprazole Sodium (PROTonix 40MG INJ) 40 mg Q24H IVP 10/30/24 21:00 11/29/24 20:59 11/01/24 20:50 40 MG Potassium Chloride 100 ml @ 100 mls/hr AD PRN IV POTASSIUM PROTOCOL 10/30/24 15:00 11/29/24 14:59 Potassium Chloride (K-Dur/Klor-Con 20meq) 20 meq AD PRN PO POTASSIUM PROTOCOL 10/30/24 15:00 11/29/24 14:59 Potassium Chloride (KCl 10% Elixir 20meq/15ml) 20 meq AD PRN PO POTASSIUM PROTOCOL 10/30/24 15:00 11/29/24 14:59 Sodium Chloride 1,000 ml @ 70 mls/hr [id number] IV 10/30/24 15:00 12/01/24 21:00 11/01/24 23:18 70 MLS/HR Tamsulosin HCl (FloMAX) 0.4 mg HS PO 10/30/24 21:00 11/29/24 20:59 11/01/24 20:49 0.4 MG DIAGNOSTICS / RADIOLOGY: [ ] ASSESSMENT: Paroxysmal atrial flutter with episodes of RVR, POA History of paroxysmal atrial fibrillation with prior history of cardioversions and ablation, POA Generalized fatigue, POA History of BPH, POA History of urinary urgency, POA 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 PLAN: Remains admitted to the PCU Continue telemetry Continue to follow Cardiology recommendations Patient started on Eliquis 5 mg p.o. b.i.d. Patient on metoprolol 25 mg p.o. b.i.d. Continue IV hydration with NS at 70 mL/hour, BUN is also noted to be elevated concerning for prerenal azotemia All labs will be repeated in the morning Patient to continue with all home medications Disposition: Pending improvement in clinical status. Total PCU time spent greater than 30 minutes. FRED ESTEVEZ MD Nov 02, 2024 09:25
[2024-11-02] MEDS ORDERED: PHARMACY COMMUNICATION MISC PRN (10:30)
[2024-11-02] MEDS ORDERED: BisaCODYL 5 MG TABLET.DR PO PRN (10:30)
[2024-11-02] MEDS: doCUSate SODIUM 100 MG CAP PO ONE (11:41)
[2024-11-02] MEDS: APIXaban 5 MG TABLET PO SCH (11:41)
[2024-11-02] MEDS: metoPROLOL tartRATE 25 MG TAB PO SCH (11:41)
[2024-11-02] MEDS: SENNOSIDES 8.6 MG TABLET PO SCH (11:46)
[2024-11-02] MEDS: MAGNESIUM 2GM PREMIX 50ML 50 ML IV SCH (13:57)
[2024-11-02] MEDS: PoTASSium chloRIDE 20MEQ ER 20 MEQ ERTAB PO PRN (14:03)
--- NOTE | 2024-11-02 19:01 | PN ---
Cardiology Progress Note Date of Service: 10/14/2024 Attending Railcar Switchman: Dr. 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 The patient denies any active complaints including chest pain, chest pressure, palpitations, or shortness of breath. As per the nurse, there were no overnight events. Vitals/Labs Vital Signs Date Time Temp Pulse Resp B/P (MAP) Pulse Ox O2 Delivery O2 Flow Rate FiO2 11/02/24 16:17 98.4 109 18 102/76 97 Room Air 11/02/24 08:00 0 21 General: Awake and alert x3. No acute distress. Chronically ill appearing. HEENT: Normocephalic, atraumatic. EOMI. Oral mucosa was moist. Neck: No masses, JVD, or carotid bruits. Lungs: No respiratory distress. SCM. Bilateral air entry. Clear to auscultation bilaterally. Cardio: Regular rate, irregular rhythm. Abdomen: Soft, nontender, nondistended. No organomegaly. Normoactive bowel sounds x 4 quadrants. Extremities. No edema, clubbing, or cyanosis. +2 pulses noted throughout. Neuro: Cranial nerves II through XII are grossly intact. No focal deficits identified. Laboratory Tests 11/02/24 08:48 Assessment: -Recurrent paroxysmal atrial fibrillation with RVR, s/p ablation done in 2009 and 11/28/2022, DCCV on 02/26/2023 -Acute HFrEF (LVEFL 25-30% by SANDOVAL done 11/01/2024) -CRISTÓBAL thrombus identified on SANDOVAL done 11/01/2024 -Nonobstructive CAD identified on LHC/coronary angiogram done on 09/10/2022 -Alcohol abuse with concern for withdraw -Electrolyte derangement -HTN -HLP -BPH -Chronic constipation -Dementia Plan: 1. Recurrent paroxysmal atrial fibrillation with RVR, s/p ablation done in 2009 and 11/28/2022, DCCV on 02/26/2023 -Substrate: Dilated atria -Inciting factor: Multiple, including suboptimal medical therapy, electrolyte derangement, and alcohol withdraw -12H telemetry: Atrial fibrillation with RVR, HR range: 100-132 bpm -Currently stable, asymptomatic, but in a poorly controlled ventricular response. -In order to optimize HR control, we will increase metoprolol tartrate to 25 mg Q8H. -If the patient's HR remains poorly controlled despite the increase in BB therapy, then we will consider administering an IV digoxin load. -In addition, we recommend implementing a CIWA protocol as alcohol withdraw is likely contributing to the patient's poorly controlled ventricular response. -CHADS2 VASc score: 7 points. Continue Eliquis 5 mg BID. -Please keep the patient on continuous telemetry monitoring and maintain electrolytes within normal parameters. This case was discussed with my Supervising Physician, Dr. Mina Stone, and the above mentioned plan was formulated and agreed upon. -Progress note written by Josi Mckeon, MSN, DYE BLENDER, AGACNP-BC JOSI MCKEON NP Nov 02, 2024 19:01
[2024-11-03] VITALS (7 sets, daily range): BP systolic 99–120; BP diastolic 54–73; PULSE 108–111; RESP 18–20; TEMP 97.6–98.4; O2SAT 97
[2024-11-03 03:52] LABS: MEAN CORPUSCULAR HEMOGLOBIN 29.6 pg (27.0-33.0); MEAN CORPUSCULAR HGB CONC 32.1 g/dL (32.0-36.0); MEAN CORPUSCULAR VOLUME 92.1 fL (79-99); RED BLOOD CELL COUNT(AUTO) 4.56 MIL/uL (4.50-6.20); RED CELL DISTRIBUTION WIDTH 13.5 % (11.0-15.5); WHITE BLOOD COUNT (AUTO) 7.1 K/uL (4.8-10.8)
[2024-11-03 04:06] LABS: ALBUMIN 2.9 g/dL (3.5-5.0); BILIRUBIN,TOTAL 0.8 mg/dL (0.2-1.0); MAGNESIUM 2.3 mg/dL (1.80-2.40); POTASSIUM 4.1 mmol/L (3.5-5.1); TOTAL PROTEIN, SERUM 5.7 g/dL (6.0-8.3)
--- NOTE | 2024-11-03 09:36 | PN ---
[facility] CARDIOLOGY PROGRESS NOTE Cardiology progress note dictated for Mina Stone MD Date Patient Seen: Nov 03, 2024 Interval History: This is an 79 year old male followed by Dr. Stone and Dr. Yunior Frank with a history of paroxysmal atrial fibrillation status post catheter ablation done in 2009 with redo catheter ablation 11/28/2022. He underwent cardioversion 02/26/2023 secondary to persistent atypical atrial flutter. He also has a history of nonobstructive coronary artery disease with 10-20% stenosis in the proximal LAD, 20-30% stenosis in the mid LAD, 20% stenosis in the proximal RCA, and 20% stenosis in the distal RCA ([facility] 09/10/2022). His most recent echocardiogram 12/02/2023 demonstrated an ejection fraction of 55% with a mildly dilated left atrium, mild aortic regurgitation and normal pericardium. Patient discontinued his amiodarone in May due to complaints of low energy and lightheadedness, and has been monitoring his heart rhythm via his Muse smartwatch. Additionally, he discontinued his Eliquis due to easy bruising. The patient was scheduled for an implantable loop recorder in September however missed the appointment. He presented to the [facility] on 10/30/24 complaining of palpitations and alert from his watch of recurrence of atrial fibrillation the evening prior. He was triaged to the emergency department for further management. He underwent attempt at SANDOVAL for possible cardioversion on 10/31/2024 unable to obtain adequate images and patient was unable to tolerate procedure despite increasing doses of sedation. He underwent a subsequent SANDOVAL on 11/01/2024 with anesthesia demonstrating a left atrial appendage thrombus. Plans for cardiovers ion were deferred. He has remained in atrial fibrillation with hr 108-117. He denies chest pain, chest pressure, palpitations, shortness of breath, dizziness, hematuria, or melena, but admits to fatigue. Physical Examination: GENERAL: No acute distress. HEAD: Normal with no signs of head trauma. EYES: PERRLA, EOMI, conjunctiva and sclera normal. NECK: Supple without JVD. There is no tenderness, lymphadenopathy, or masses. No thyromegaly. Normal carotid upstrokes without bruits. LUNGS: Clear breath sounds bilaterally. No wheezes, or rhonchi. HEART: Irregularly irregular underlying rhythm. Normal S1 and S2 without murmurs, gallop or rub. VASC: Peripheral pulses +2 bilaterally. EXT: No clubbing, cyanosis or edema. NEURO: Awake, alert, and oriented x3. No focal neurological deficits noted. Laboratory: Hematology Labs: Test 11/03/24 03:37 Range/Units White Blood Count 7.1 4.8-10.8 K/uL Red Blood Count 4.56 4.50-6.20 MIL/uL Hemoglobin 13.5 L 14.0-18.0 g/dL Hematocrit 42.0 42-54 % Mean Corpuscular Volume 92.1 79-99 fL Mean Corpuscular Hemoglobin 29.6 27.0-33.0 pg Mean Corpuscular Hemoglobin Concent 32.1 32.0-36.0 g/dL Red Cell Distribution Width 13.5 11.0-15.5 % Platelet Count 161 130-400 K/uL Mean Platelet Volume 10.0 7.5-10.5 fL Nucleated Red Blood Cells 0.0 0.0-0.19 % Chemistry Labs: Test 11/03/24 03:37 Range/Units Sodium Level 138 136-145 mmol/L Potassium Level 4.1 3.5-5.1 mmol/L Chloride Level 105 101-111 mmol/L Carbon Dioxide Level 30 21-32 mmol/L Blood Urea Nitrogen 18 7-18 mg/dL Creatinine 1.0 0.5-1.3 mg/dL Glomerular Filtration Rate Calc 76 >90 mL/min Random Glucose 98 70-105 mg/dL Total Calcium 8.2 L 8.5-10.1 mg/dL Magnesium Level 2.30 1.80-2.40 mg/dL Total Bilirubin 0.8 0.2-1.0 mg/dL Aspartate Amino Transf (AST/SGOT) 23 10-37 U/L Alanine Aminotransferase (ALT/SGPT) 36 # 12-78 U/L Alkaline Phosphatase 17 L 50-136 U/L Total Protein 5.7 L 6.0-8.3 g/dL Albumin 2.9 L 3.5-5.0 g/dL Diagnostics / Radiology: Assessment: -Recurrent paroxysmal atrial fibrillation with RVR, s/p ablation done in 2009 and 11/28/2022, DCCV on 02/26/2023 -Acute HFrEF (LVEFL 25-30% by SANDOVAL done 11/01/2024) -CRISTÓBAL thrombus identified on SANDOVAL done 11/01/2024 -Nonobstructive CAD identified on C/coronary angiogram done on 09/10/2022 -Alcohol abuse with concern for withdraw -Electrolyte derangement -HTN -HLP -BPH -Chronic constipation -Dementia Plan: 1. Recurrent paroxysmal atrial fibrillation with RVR, s/p ablation done in 2009 and 11/28/2022, DCCV on 02/26/2023 -Substrate: Dilated atria -Inciting factor: Multiple, including suboptimal medical therapy, electrolyte derangement, and alcohol withdraw -12H telemetry: Atrial fibrillation with RVR, HR range: 108-117bpm -Currently stable, admits to fatigue -In order to optimize HR control, we will continue metoprolol tartrate to 25 mg Q8H. -If the patient's HR remains poorly controlled despite the increase in BB therapy, then we will consider administering an IV digoxin load. -In addition, we recommend implementing a CIWA protocol as alcohol withdraw is likely contributing to the patient's poorly controlled ventricular response. -CHADS2 VASc score: 7 points. Continue Eliquis 5 mg BID. -Please keep the patient on continuous telemetry monitoring and maintain electrolytes within normal parameters. DANIELITO ANGELES MONITOR AND STORAGE BIN TENDER Nov 03, 2024 09:36
--- NOTE | 2024-11-03 10:08 | PN ---
[facility] PROGRESS NOTE Date of Service: Nov 03, 2024 Time of Service: 10:03 SUBJECTIVE: 10/31 patient seen at bedside, no acute events overnight. Cardioversion was attempted today however he was not successful, Cardiology plans to repeat again tomorrow, continue patient on telemetry and monitor. Potassium increased from 4.2 up to 5.2. Echocardiogram pending, we will follow up. 11/01 seen at bedside, no acute events overnight, cardioversion was not successful today, maged was done showing atrial thrombus. Cardiology recommending medical managed at this time, p.o. medications have been adjusted, we will continue to monitor and reassess tomorrow. Start metoprolol 25 mg twice daily per Cardiology. 11/02 patient is seen and examined, eating lunch, comfortable in bed. BP 10/10/68, heart rate of 52, rest of the vital signs unremarkable. CBC with hemoglobin 13.1, hematocrit 40.6, WBC 6.7, platelet count of 154. CMP with sodium 140, potassium 3.7, BUN 17, creatinine 0.9. MAGED done, showing atrial thrombus, Patient started on metoprolol 25 mg p.o. b.i.d. patient also on Eliquis 5 mg p.o. b.i.d. 11/03 the patient has been seen and examined, no acute events overnight, BP 99/66, telemetry reviewed, the patient is still tachycardic, heart rate 111. He is afebrile, saturating normal on room air. He underwent attempt at MAGED for possible cardioversion on 10/31/2024 unable to obtain adequate images and patient was unable to tolerate procedure despite increasing doses of sedation. He underwent a subsequent MAGED on 11/01/2024 with anesthesia demonstrating a left atrial appendage thrombus. Plans for cardioversion were deferred. Patient evaluated by space operations officer, metoprolol tartrate changed from 25 mg p.o. b.i.d. to 25 mg p.o. q.8 hours, we will continue to monitor on telemetry. Patient will continue on Eliquis 5 mg p.o. b.i.d., continue to monitor for signs of active bleeding, hemoglobin today at 13.5, stable from prior day. Hematocrit 42.0. We will continue to monitor for alcohol withdrawal. REVIEW OF SYSTEMS 12 point review of systems negative unless noted in HPI PHYSICAL EXAM GENERAL APPEARANCE: The patient is awake, alert, and oriented, in no acute cardiopulmonary distress. NEUROLOGICAL: Cranial nerves II-XII grossly intact. Motor is 5/5 in bilateral upper and lower extremities proximal to distal. No sensory deficits. HEENT: Face is symmetric. Pupils are equal and reactive. Extraocular movements are intact. NECK: Supple. No JVD. No thyromegaly. No submental, submandibular, pre- /postauricular, occipital or supraclavicular lymphadenopathy. CHEST: Normal chest expansion. No Telemetry. LUNGS: Absence of any rales, rhonchi or any wheezing. CARDIOVASCULAR: Irregularly irregular. S1 and S2 normal. No appreciable rubs, murmurs or gallops. ABDOMEN: Soft, nontender, and nondistended. There is no rebound, voluntary guarding, or rigidity. : Deferred. No Kulkarni. EXTREMITIES: Non-edematous and not cyanotic. No clubbing. Good capillary refill. SKIN: No skin breakdown. Vital Signs (last 8hr) Date Time Temp Pulse Resp B/P (MAP) Pulse Ox O2 Delivery O2 Flow Rate FiO2 11/03/24 08:30 97.5 111 18 99/66 99 Room Air 11/03/24 04:06 98.4 108 18 102/54 97 Room Air LABS: Laboratory: Test 11/03/24 03:37 Range/Units White Blood Count 7.1 4.8-10.8 K/uL Red Blood Count 4.56 4.50-6.20 MIL/uL Hemoglobin 13.5 L 14.0-18.0 g/dL Hematocrit 42.0 42-54 % Mean Corpuscular Volume 92.1 79-99 fL Mean Corpuscular Hemoglobin 29.6 27.0-33.0 pg Mean Corpuscular Hemoglobin Concent 32.1 32.0-36.0 g/dL Red Cell Distribution Width 13.5 11.0-15.5 % Platelet Count 161 130-400 K/uL Mean Platelet Volume 10.0 7.5-10.5 fL Nucleated Red Blood Cells 0.0 0.0-0.19 % Sodium Level 138 136-145 mmol/L Potassium Level 4.1 3.5-5.1 mmol/L Chloride Level 105 101-111 mmol/L Carbon Dioxide Level 30 21-32 mmol/L Blood Urea Nitrogen 18 7-18 mg/dL Creatinine 1.0 0.5-1.3 mg/dL Glomerular Filtration Rate Calc 76 >90 mL/min Random Glucose 98 70-105 mg/dL Total Calcium 8.2 L 8.5-10.1 mg/dL Magnesium Level 2.30 1.80-2.40 mg/dL Total Bilirubin 0.8 0.2-1.0 mg/dL Aspartate Amino Transf (AST/SGOT) 23 10-37 U/L Alanine Aminotransferase (ALT/SGPT) 36 # 12-78 U/L Alkaline Phosphatase 17 L 50-136 U/L Total Protein 5.7 L 6.0-8.3 g/dL Albumin 2.9 L 3.5-5.0 g/dL Current Medications Medications (Trade) Dose Ordered Sig/Naif Route PRN Reason Start Time Stop Time Status Last Admin Dose Admin Acetaminophen (TYLenol 500MG TAB) 500 mg Q6H PRN PO MILD PAIN (1-3) 10/30/24 15:00 11/29/24 14:59 Apixaban (EliquIS) 5 mg BID PO 11/02/24 09:00 12/02/24 08:59 11/03/24 09:04 5 MG Bisacodyl (DulcoLAX 5MG TAB) 5 mg DAILYPRN PRN PO OTHER [SEE ORDER COMMENTS] 11/02/24 10:30 12/02/24 10:29 Donepezil HCl (ARIcept 5MG TAB) 5 mg DAILY PO 10/31/24 09:00 11/30/24 08:59 11/03/24 08:57 5 MG Enoxaparin Sodium (Lovenox (Pharmacy To Dose)) 1 unit BID SQ 10/30/24 21:00 10/30/24 14:57 DC Enoxaparin Sodium (Lovenox) 100 mg BID SQ 10/30/24 21:00 11/02/24 08:28 DC 11/01/24 20:50 100 MG EZETIMIBE (Zetia) 10 mg DAILY PO 10/31/24 09:00 11/30/24 08:59 11/03/24 08:57 10 MG Famotidine (Pepcid 20mg Vial) 20 mg BID IV 10/30/24 21:00 10/30/24 20:45 DC Home Med (Home Medication) Calcium Polycarbophil (Fiber Ta... DAILY PO 10/31/24 09:00 11/30/24 08:59 Home Med (Home Medication) Linaclotide (Linzess) 72 MCG DAILY PO 10/31/24 09:00 11/30/24 08:59 Home Med (Home Medication) Mv-Mn/Om3/ Dha/Epa/ Fish/L... DAILY PO 10/31/24 09:00 11/30/24 08:59 Home Med (Home Medication) Vibegron (Gemtesa) 75 MG DAILY PO 10/31/24 09:00 11/30/24 08:59 Magnesium Sulfate 50 ml @ 0 mls/hr PROTOCOL IV 10/30/24 15:00 11/02/24 12:28 DC 10/30/24 16:14 25 MLS/HR Magnesium Sulfate 50 ml @ 0 mls/hr PROTOCOL IV 11/02/24 12:30 12/02/24 12:29 11/02/24 20:41 20 MLS/HR Metoprolol Tartrate (loprESSOR) 2.5 mg Q6H PRN IV for HR> 130 10/30/24 15:00 11/29/24 14:59 Metoprolol Tartrate (loprESSOR) 25 mg BID PO 11/02/24 09:00 11/02/24 10:24 DC Metoprolol Tartrate (loprESSOR) 25 mg Q8H PO 11/02/24 12:00 12/02/24 11:59 11/03/24 04:58 25 MG Midazolam HCl (Versed) 2 mg ONCE STAT IVP 10/31/24 10:40 10/31/24 10:42 DC 10/31/24 10:44 2 MG Multivitamins Therapeutic (Multivitamin Tablet) 1 tab AM PO 10/31/24 09:00 11/30/24 08:59 11/03/24 08:57 1 TAB Ondansetron HCl (zoFRAN 4MG INJ) 4 mg Q6H PRN IVP NAUSEA/VOMITING 10/30/24 15:00 11/29/24 14:59 Pantoprazole Sodium (PROTonix 40MG INJ) 40 mg Q24H IVP 10/30/24 21:00 11/29/24 20:59 11/02/24 20:37 40 MG Pharmacy Profile Note (Pharmacy Communication) 1 each PROTOCOL PRN MISC ETOH Withdrawal Score changes 11/02/24 10:30 11/09/24 10:29 Potassium Chloride 100 ml @ 100 mls/hr AD PRN IV POTASSIUM PROTOCOL 10/30/24 15:00 11/29/24 14:59 Potassium Chloride (K-Dur/Klor-Con 20meq) 20 meq AD PRN PO POTASSIUM PROTOCOL 10/30/24 15:00 11/29/24 14:59 11/02/24 15:30 20 MEQ Potassium Chloride (KCl 10% Elixir 20meq/15ml) 20 meq AD PRN PO POTASSIUM PROTOCOL 10/30/24 15:00 11/29/24 14:59 Sennosides (Senna) 1 tab DAILY PO 11/02/24 10:30 12/02/24 10:29 11/03/24 08:57 1 TAB Sodium Chloride 1,000 ml @ 70 mls/hr [id number] IV 10/30/24 15:00 12/01/24 21:00 11/03/24 04:58 70 MLS/HR Tamsulosin HCl (FloMAX) 0.4 mg HS PO 10/30/24 21:00 11/29/24 20:59 11/02/24 20:37 0.4 MG DIAGNOSTICS / RADIOLOGY: [ ] ASSESSMENT: Paroxysmal atrial flutter with episodes of RVR, POA History of paroxysmal atrial fibrillation with prior history of cardioversions and ablation, POA Generalized fatigue, POA History of BPH, POA History of urinary urgency, POA 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 PLAN: Remains admitted to the PCU Continue telemetry Cardiology input noted and appreciated Metoprolol increased to 25 mg p.o. t.i.d. Eliquis 5 mg p.o. b.i.d. CBC in a.m. transfuse as needed Monitor for signs of alcohol withdrawal Replace electrolytes IV per protocol All labs will be repeated in the morning GI and DVT prophylaxis Disposition: Pending improvement in clinical status. Total PCU time spent greater than 30 minutes. FRED ESTEVEZ MD Nov 03, 2024 10:08
[2024-11-04] VITALS (9 sets, daily range): BP systolic 95–121; BP diastolic 63–79; PULSE 104–119; RESP 18–20; TEMP 97.6–98.4; O2SAT 96–97
[2024-11-04 04:03] LABS: HEMATOCRIT 42.7 % (42-54); MEAN CORPUSCULAR HEMOGLOBIN 30.4 pg (27.0-33.0); MEAN CORPUSCULAR HGB CONC 32.8 g/dL (32.0-36.0); MEAN CORPUSCULAR VOLUME 92.6 fL (79-99); RED BLOOD CELL COUNT(AUTO) 4.61 MIL/uL (4.50-6.20); RED CELL DISTRIBUTION WIDTH 13.5 % (11.0-15.5); WHITE BLOOD COUNT (AUTO) 10.1 K/uL (4.8-10.8)
[2024-11-04 04:21] LABS: BILIRUBIN,TOTAL 0.8 mg/dL (0.2-1.0); MAGNESIUM 1.8 mg/dL (1.80-2.40); POTASSIUM 3.9 mmol/L (3.5-5.1)
--- NOTE | 2024-11-04 10:22 | PN ---
[facility] CARDIOLOGY PROGRESS NOTE Date Patient Seen: Nov 04, 2024 Time of Visit: 10:11 Interval History: The patient continues in his atypical atrial flutter in his rate control continues to be suboptimal. He is on metoprolol tartrate 25 mg Q 8 hours. Cardioversion was not performed due to left atrial appendage thrombus. He is being anticoagulated with Eliquis. Physical Examination: Lungs are clear Heart is regular and slightly tachycardic with no murmur Extremities are without edema. Laboratory: [ ] Hematology Labs: Test 11/04/24 03:37 Range/Units White Blood Count 10.1 # 4.8-10.8 K/uL Red Blood Count 4.61 4.50-6.20 MIL/uL Hemoglobin 14.0 14.0-18.0 g/dL Hematocrit 42.7 42-54 % Mean Corpuscular Volume 92.6 79-99 fL Mean Corpuscular Hemoglobin 30.4 27.0-33.0 pg Mean Corpuscular Hemoglobin Concent 32.8 32.0-36.0 g/dL Red Cell Distribution Width 13.5 11.0-15.5 % Platelet Count 151 130-400 K/uL Mean Platelet Volume 10.5 7.5-10.5 fL Nucleated Red Blood Cells 0.0 0.0-0.19 % Chemistry Labs: Test 11/04/24 03:37 Range/Units Sodium Level 137 136-145 mmol/L Potassium Level 3.9 3.5-5.1 mmol/L Chloride Level 104 101-111 mmol/L Carbon Dioxide Level 28 21-32 mmol/L Blood Urea Nitrogen 21 H 7-18 mg/dL Creatinine 1.0 0.5-1.3 mg/dL Glomerular Filtration Rate Calc 76 >90 mL/min Random Glucose 91 70-105 mg/dL Total Calcium 8.0 L 8.5-10.1 mg/dL Magnesium Level 1.80 1.80-2.40 mg/dL Total Bilirubin 0.8 0.2-1.0 mg/dL Aspartate Amino Transf (AST/SGOT) 30 10-37 U/L Alanine Aminotransferase (ALT/SGPT) 59 # 12-78 U/L Alkaline Phosphatase 19 L 50-136 U/L Total Protein 6.0 6.0-8.3 g/dL Albumin 3.0 L 3.5-5.0 g/dL Impression and Plan: 1. Atypical atrial flutter with a suboptimal rate control 2. Left atrial appendage thrombus 3. Newly diagnosed cardiomyopathy with EF 25-30% by SANDOVAL. -The patient underwent cardiac catheterization on 09/10/2022 showing nonobstructive coronary artery disease with an ejection fraction of 50-55%. He also had an echocardiogram on 12/02/2023 demonstrating an ejection fraction of 55% with mild left atrial dilatation and mild aortic regurgitation. Plan: 1. The patient requires improved rate control. Calcium channel blockers are not a good option due to LV systolic dysfunction. In addition, the patient suffers from constipation and is on Linzess in addition to other laxatives. 2. We will add digoxin to the patient's regimen to improve rate control 3. The patient can undergo either cardioversion or possibly catheter ablation if a repeat SANDOVAL in 30 days demonstrates resolution of the thrombus. 4. The patient is awaiting an echocardiogram to clarify and further assess the low ejection fraction seen on SANDOVAL. GILA GLEASON MD Nov 04, 2024 10:22
[2024-11-04] MEDS: DIGOxin 250MCG TABLET PO ONE ×2 (11:24→16:37)
--- NOTE | 2024-11-04 12:46 | PN ---
[facility] PROGRESS NOTE Date of Service: Nov 04, 2024 Time of Service: 12:44 SUBJECTIVE: 10/31 patient seen at bedside, no acute events overnight. Cardioversion was attempted today however he was not successful, Cardiology plans to repeat again tomorrow, continue patient on telemetry and monitor. Potassium increased from 4.2 up to 5.2. Echocardiogram pending, we will follow up. 11/01 seen at bedside, no acute events overnight, cardioversion was not successful today, maged was done showing atrial thrombus. Cardiology recommending medical managed at this time, p.o. medications have been adjusted, we will continue to monitor and reassess tomorrow. Start metoprolol 25 mg twice daily per Cardiology. 11/02 patient is seen and examined, eating lunch, comfortable in bed. BP 10/10/68, heart rate of 52, rest of the vital signs unremarkable. CBC with hemoglobin 13.1, hematocrit 40.6, WBC 6.7, platelet count of 154. CMP with sodium 140, potassium 3.7, BUN 17, creatinine 0.9. MAGED done, showing atrial thrombus, Patient started on metoprolol 25 mg p.o. b.i.d. patient also on Eliquis 5 mg p.o. b.i.d. 11/03 the patient has been seen and examined, no acute events overnight, BP 99/66, telemetry reviewed, the patient is still tachycardic, heart rate 111. He is afebrile, saturating normal on room air. He underwent attempt at MAGED for possible cardioversion on 10/31/2024 unable to obtain adequate images and patient was unable to tolerate procedure despite increasing doses of sedation. He underwent a subsequent MAGED on 11/01/2024 with anesthesia demonstrating a left atrial appendage thrombus. Plans for cardioversion were deferred. Patient evaluated by radar engineer, metoprolol tartrate changed from 25 mg p.o. b.i.d. to 25 mg p.o. q.8 hours, we will continue to monitor on telemetry. Patient will continue on Eliquis 5 mg p.o. b.i.d., continue to monitor for signs of active bleeding, hemoglobin today at 13.5, stable from prior day. Hematocrit 42.0. We will continue to monitor for alcohol withdrawal. 11/04 patient is seen and examined bedside during rounding, comfortably in bed, alert oriented x3, patient evaluated by special tester, patient continues with a atypical atrial flutter, heart rate remains suboptimal. Patient has been on metoprolol tartrate 25 mg p.o. q.8 hours. Cardioversion was not performed due left atrial appendage thrombus. Patient has remained on Eliquis 5 mg p.o. b.i.d.. Calcium channel blockers are not good options for the patient as he has LV systolic dysfunction, in addition suffered from constipation. Digoxin has been added to current regimen to improve rate controlled. Patient can undergo either cardioversion possibly catheter ablation if a repeat MAGED 30 days demonstrates resolution of the thrombus. REVIEW OF SYSTEMS 12 point review of systems negative unless noted in HPI PHYSICAL EXAM GENERAL APPEARANCE: The patient is awake, alert, and oriented, in no acute cardiopulmonary distress. NEUROLOGICAL: Cranial nerves II-XII grossly intact. Motor is 5/5 in bilateral upper and lower extremities proximal to distal. No sensory deficits. HEENT: Face is symmetric. Pupils are equal and reactive. Extraocular movements are intact. NECK: Supple. No JVD. No thyromegaly. No submental, submandibular, pre-/postauricular, occipital or supraclavicular lymphadenopathy. CHEST: Normal chest expansion. No Telemetry. LUNGS: Absence of any rales, rhonchi or any wheezing. CARDIOVASCULAR: Irregularly irregular. S1 and S2 normal. No appreciable rubs, murmurs or gallops. ABDOMEN: Soft, nontender, and nondistended. There is no rebound, voluntary guarding, or rigidity. : Deferred. No Kulkarni. EXTREMITIES: Non-edematous and not cyanotic. No clubbing. Good capillary refill. SKIN: No skin breakdown. Vital Signs (last 8hr) Date Time Temp Pulse Resp B/P (MAP) Pulse Ox O2 Delivery O2 Flow Rate FiO2 11/04/24 11:24 114 11/04/24 11:00 97.5 111 20 95/66 97 Room Air 11/04/24 07:00 98.4 119 20 112/79 98 Room Air LABS: Laboratory: Test 11/04/24 03:37 Range/Units White Blood Count 10.1 # 4.8-10.8 K/uL Red Blood Count 4.61 4.50-6.20 MIL/uL Hemoglobin 14.0 14.0-18.0 g/dL Hematocrit 42.7 42-54 % Mean Corpuscular Volume 92.6 79-99 fL Mean Corpuscular Hemoglobin 30.4 27.0-33.0 pg Mean Corpuscular Hemoglobin Concent 32.8 32.0-36.0 g/dL Red Cell Distribution Width 13.5 11.0-15.5 % Platelet Count 151 130-400 K/uL Mean Platelet Volume 10.5 7.5-10.5 fL Nucleated Red Blood Cells 0.0 0.0-0.19 % Sodium Level 137 136-145 mmol/L Potassium Level 3.9 3.5-5.1 mmol/L Chloride Level 104 101-111 mmol/L Carbon Dioxide Level 28 21-32 mmol/L Blood Urea Nitrogen 21 H 7-18 mg/dL Creatinine 1.0 0.5-1.3 mg/dL Glomerular Filtration Rate Calc 76 >90 mL/min Random Glucose 91 70-105 mg/dL Total Calcium 8.0 L 8.5-10.1 mg/dL Magnesium Level 1.80 1.80-2.40 mg/dL Total Bilirubin 0.8 0.2-1.0 mg/dL Aspartate Amino Transf (AST/SGOT) 30 10-37 U/L Alanine Aminotransferase (ALT/SGPT) 59 # 12-78 U/L Alkaline Phosphatase 19 L 50-136 U/L Total Protein 6.0 6.0-8.3 g/dL Albumin 3.0 L 3.5-5.0 g/dL Current Medications Medications (Trade) Dose Ordered Sig/Naif Route PRN Reason Start Time Stop Time Status Last Admin Dose Admin Acetaminophen (TYLenol 500MG TAB) 500 mg Q6H PRN PO MILD PAIN (1-3) 10/30/24 15:00 11/29/24 14:59 Apixaban (EliquIS) 5 mg BID PO 11/02/24 09:00 12/02/24 08:59 11/04/24 09:17 5 MG Bisacodyl (DulcoLAX 5MG TAB) 5 mg DAILYPRN PRN PO OTHER [SEE ORDER COMMENTS] 11/02/24 10:30 12/02/24 10:29 Digoxin (LANOxin 125mcg) 125 mcg DAILY PO 11/05/24 09:00 12/05/24 08:59 Donepezil HCl (ARIcept 5MG TAB) 5 mg DAILY PO 10/31/24 09:00 11/30/24 08:59 11/04/24 09:17 5 MG Enoxaparin Sodium (Lovenox (Pharmacy To Dose)) 1 unit BID SQ 10/30/24 21:00 10/30/24 14:57 DC Enoxaparin Sodium (Lovenox) 100 mg BID SQ 10/30/24 21:00 11/02/24 08:28 DC 11/01/24 20:50 100 MG EZETIMIBE (Zetia) 10 mg DAILY PO 10/31/24 09:00 11/30/24 08:59 11/04/24 09:17 10 MG Famotidine (Pepcid 20mg Vial) 20 mg BID IV 10/30/24 21:00 10/30/24 20:45 DC Home Med (Home Medication) Calcium Polycarbophil (Fiber Ta... DAILY PO 10/31/24 09:00 11/30/24 08:59 Home Med (Home Medication) Linaclotide (Linzess) 72 MCG DAILY PO 10/31/24 09:00 11/30/24 08:59 Home Med (Home Medication) Mv-Mn/Om3/ Dha/Epa/ Fish/L... DAILY PO 10/31/24 09:00 11/30/24 08:59 Home Med (Home Medication) Vibegron (Gemtesa) 75 MG DAILY PO 10/31/24 09:00 11/30/24 08:59 Magnesium Sulfate 50 ml @ 0 mls/hr PROTOCOL IV 10/30/24 15:00 11/02/24 12:28 DC 10/30/24 16:14 25 MLS/HR Magnesium Sulfate 50 ml @ 0 mls/hr PROTOCOL IV 11/02/24 12:30 12/02/24 12:29 11/04/24 06:46 20 MLS/HR Metoprolol Tartrate (loprESSOR) 2.5 mg Q6H PRN IV for HR> 130 10/30/24 15:00 11/29/24 14:59 Metoprolol Tartrate (loprESSOR) 25 mg BID PO 11/02/24 09:00 11/02/24 10:24 DC Metoprolol Tartrate (loprESSOR) 25 mg Q8H PO 11/02/24 12:00 12/02/24 11:59 11/04/24 11:24 25 MG Midazolam HCl (Versed) 2 mg ONCE STAT IVP 10/31/24 10:40 10/31/24 10:42 DC 10/31/24 10:44 2 MG Multivitamins Therapeutic (Multivitamin Tablet) 1 tab AM PO 10/31/24 09:00 11/30/24 08:59 11/04/24 09:17 1 TAB Ondansetron HCl (zoFRAN 4MG INJ) 4 mg Q6H PRN IVP NAUSEA/VOMITING 10/30/24 15:00 11/29/24 14:59 Pantoprazole Sodium (PROTonix 40MG INJ) 40 mg Q24H IVP 10/30/24 21:00 11/29/24 20:59 11/03/24 20:45 40 MG Pharmacy Profile Note (Pharmacy Communication) 1 each PROTOCOL PRN MISC ETOH Withdrawal Score changes 11/02/24 10:30 11/09/24 10:29 Potassium Chloride 100 ml @ 100 mls/hr AD PRN IV POTASSIUM PROTOCOL 10/30/24 15:00 11/29/24 14:59 Potassium Chloride (K-Dur/Klor-Con 20meq) 20 meq AD PRN PO POTASSIUM PROTOCOL 10/30/24 15:00 11/29/24 14:59 11/02/24 15:30 20 MEQ Potassium Chloride (KCl 10% Elixir 20meq/15ml) 20 meq AD PRN PO POTASSIUM PROTOCOL 10/30/24 15:00 11/29/24 14:59 Sennosides (Senna) 1 tab DAILY PO 11/02/24 10:30 12/02/24 10:29 11/04/24 09:17 1 TAB Sodium Chloride 1,000 ml @ 70 mls/hr [id number] IV 10/30/24 15:00 12/01/24 21:00 11/03/24 04:58 70 MLS/HR Tamsulosin HCl (FloMAX) 0.4 mg HS PO 10/30/24 21:00 11/29/24 20:59 11/03/24 20:45 0.4 MG DIAGNOSTICS / RADIOLOGY: [ ] ASSESSMENT: Paroxysmal atrial flutter with episodes of RVR, POA History of paroxysmal atrial fibrillation with prior history of cardioversions and ablation, POA Generalized fatigue, POA History of BPH, POA History of urinary urgency, POA 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 PLAN: Remains admitted to the PCU Continue telemetry Cardiology input noted and appreciated Metoprolol increased to 25 mg p.o. t.i.d. Eliquis 5 mg p.o. b.i.d. CBC in a.m. transfuse as needed Monitor for signs of alcohol withdrawal Replace electrolytes IV per protocol All labs will be repeated in the morning GI and DVT prophylaxis Disposition: Pending improvement in clinical status. Total PCU time spent greater than 30 minutes. FRED ESTEVEZ MD Nov 04, 2024 12:46
--- NOTE | 2024-11-04 19:43 | HMCSR ---
APPROVED REPORT EXAM: Two-dimensional and M-mode echocardiogram with Doppler and color Doppler. INDICATION ICD: Cardiomyopathy 2D Dimensions RVDd4.0 cmLVEF(%)41.1 (>50%)LVED Vol(simp.)123.0 mL IVSd1.0 (0.7-1.1cm)FS(%)20 %LVES Vol(simp.)64.5 mL LVDd4.5 (3.8-5.6cm)LA (2D)4.7 (1.6-4.0cm)LVEF(%, simp.)48 % PWd0.9 (0.7-1.1cm)Ao Root(2D)3.3 (2.0-3.7cm)LA ESV INDEX (4CH)38.50 mL/m2 IVSs1.1 cmLVOT diam2.7 (1.8-2.4cm)LA ESV INDEX (2CH)49.40 mL/m2 LVDs3.6 (2.5-4.0cm)LA ESV INDEX (BP)44.60 mL/m2 PWs1.7 cm Deformation Strain Apical 416.0 % Apical 214.0 % Apical 316.0 % Global Azzmpm51.0 % M-Mode Dimensions EPSS1.3 cm LA (MM)5.6 (1.6-4.0cm) Ao Root(MM)3.8 (2.0-3.7cm) Aortic Valve AoV VTI0.2 mAo Mean GR3.0 mmHgLVOT VTI0.11 m ANABELL (VMAX)4.0 cm2AVA (VTI) 4.0 cm2 Mitral Valve MV E Vmax62.6 cm/sDECEL Thly044 ms MV A Vmax67.4 cm/s E/A ratio0.9 TDI E/E' Pqcmzh26.9E/E' Gbokaxt44.4 Medial E' Peak V3.70 cm/sLateral E' Peak V2.80 cm/s Pulmonary Valve PV Vmax0.5 m/s PV Peak GR1.1 mmHg Tricuspid Valve TR Vmax2.3 m/sRAP (EST) 8 nhJhAUGF03.6 mmHg TR Peak GR20.6 mmHg Left Ventricle The left ventricle is normal size. Mild anterior hypokinesis There is normal left ventricular wall th ickness. LVEF is 45%. Indeterminate diastolic dysfunction. Right Ventricle The right ventricle is mildly dilated. The right ventricular systolic function is normal. Atria The left atrium is mildly to moderately dilated. The right atrium is moderately to severely dilated. Aortic Valve The aortic valve is normal in structure. No aortic regurgitation is present. There is no aortic valvu lar stenosis. Mitral Valve The mitral valve is normal in structure. There is trace of mitral valve regurgitation noted. There is no mitral valve stenosis. Tricuspid Valve The tricuspid valve is normal in structure. There is trace of tricuspid valve regurgitation noted. Pulmonic Valve The pulmonary valve is normal in structure. There is no pulmonic valvular regurgitation. Great Vessels The aortic root is normal in size. The IVC is normal in size and collapses <50% with inspiration. Pericardium There is asymetrical trace to small pericardial effusion. No echo indications of pericardial tamponad e. Other Information Quality : Adequate Conclusion LVEF is 45%. Moderate anterior hypokinesis The right ventricle is mildly dilated.
[2024-11-05] VITALS (10 sets, daily range): BP systolic 79–120; BP diastolic 52–89; PULSE 76–112; RESP 18; TEMP 97.4–98.2; O2SAT 96–97
[2024-11-05 04:57] LABS: HEMATOCRIT 43.8 % (42-54); MEAN CORPUSCULAR HEMOGLOBIN 29.9 pg (27.0-33.0); MEAN CORPUSCULAR HGB CONC 31.7 g/dL (32.0-36.0); MEAN CORPUSCULAR VOLUME 94.2 fL (79-99); RED BLOOD CELL COUNT(AUTO) 4.65 MIL/uL (4.50-6.20); RED CELL DISTRIBUTION WIDTH 13.5 % (11.0-15.5); WHITE BLOOD COUNT (AUTO) 8.6 K/uL (4.8-10.8)
[2024-11-05 05:17] LABS: ALBUMIN 2.9 g/dL (3.5-5.0); BILIRUBIN,TOTAL 0.6 mg/dL (0.2-1.0); MAGNESIUM 1.8 mg/dL (1.80-2.40); POTASSIUM 4.6 mmol/L (3.5-5.1)
[2024-11-05] MEDS: DIGOxin 125 MCG TABLET PO SCH (08:48)
--- NOTE | 2024-11-05 11:31 | PN ---
[facility] PROGRESS NOTE Date of Service: Nov 05, 2024 Time of Service: 11:30 SUBJECTIVE: 10/31 patient seen at bedside, no acute events overnight. Cardioversion was attempted today however he was not successful, Cardiology plans to repeat again tomorrow, continue patient on telemetry and monitor. Potassium increased from 4.2 up to 5.2. Echocardiogram pending, we will follow up. 11/01 seen at bedside, no acute events overnight, cardioversion was not successful today, maged was done showing atrial thrombus. Cardiology recommending medical managed at this time, p.o. medications have been adjusted, we will continue to monitor and reassess tomorrow. Start metoprolol 25 mg twice daily per Cardiology. 11/02 patient is seen and examined, eating lunch, comfortable in bed. BP 10/10/68, heart rate of 52, rest of the vital signs unremarkable. CBC with hemoglobin 13.1, hematocrit 40.6, WBC 6.7, platelet count of 154. CMP with sodium 140, potassium 3.7, BUN 17, creatinine 0.9. MAGED done, showing atrial thrombus, Patient started on metoprolol 25 mg p.o. b.i.d. patient also on Eliquis 5 mg p.o. b.i.d. 11/03 the patient has been seen and examined, no acute events overnight, BP 99/66, telemetry reviewed, the patient is still tachycardic, heart rate 111. He is afebrile, saturating normal on room air. He underwent attempt at MAGED for possible cardioversion on 10/31/2024 unable to obtain adequate images and patient was unable to tolerate procedure despite increasing doses of sedation. He underwent a subsequent MAGED on 11/01/2024 with anesthesia demonstrating a left atrial appendage thrombus. Plans for cardioversion were deferred. Patient evaluated by shotblast equipment operator, metoprolol tartrate changed from 25 mg p.o. b.i.d. to 25 mg p.o. q.8 hours, we will continue to monitor on telemetry. Patient will continue on Eliquis 5 mg p.o. b.i.d., continue to monitor for signs of active bleeding, hemoglobin today at 13.5, stable from prior day. Hematocrit 42.0. We will continue to monitor for alcohol withdrawal. 11/04 patient is seen and examined bedside during rounding, comfortably in bed, alert oriented x3, patient evaluated by undergraduate intern, patient continues with a atypical atrial flutter, heart rate remains suboptimal. Patient has been on metoprolol tartrate 25 mg p.o. q.8 hours. Cardioversion was not performed due left atrial appendage thrombus. Patient has remained on Eliquis 5 mg p.o. b.i.d.. Calcium channel blockers are not good options for the patient as he has LV systolic dysfunction, in addition suffered from constipation. Digoxin has been added to current regimen to improve rate controlled. Patient can undergo either cardioversion possibly catheter ablation if a repeat MAGED 30 days demonstrates resolution of the thrombus. 11/05 patient is seen and examined at bedside, still in atrial flutter, heart rate fluctuating between 107 to 112. BP 97/64, he is alert oriented x3, no chest pain, no shortness a breath, no palpitations. Currently the patient on digoxin 125 mcg p.o. daily. Continue metoprolol 25 mg p.o. q.8 hours. Patient also on Eliquis 5 mg p.o. b.i.d.. REVIEW OF SYSTEMS 12 point review of systems negative unless noted in HPI PHYSICAL EXAM GENERAL APPEARANCE: The patient is awake, alert, and oriented, in no acute cardiopulmonary distress. NEUROLOGICAL: Cranial nerves II-XII grossly intact. Motor is 5/5 in bilateral upper and lower extremities proximal to distal. No sensory deficits. HEENT: Face is symmetric. Pupils are equal and reactive. Extraocular movements are intact. NECK: Supple. No JVD. No thyromegaly. No submental, submandibular, pre- /postauricular, occipital or supraclavicular lymphadenopathy. CHEST: Normal chest expansion. No Telemetry. LUNGS: Absence of any rales, rhonchi or any wheezing. CARDIOVASCULAR: Irregularly irregular. S1 and S2 normal. No appreciable rubs, murmurs or gallops. ABDOMEN: Soft, nontender, and nondistended. There is no rebound, voluntary guarding, or rigidity. : Deferred. No Kulkarni. EXTREMITIES: Non-edematous and not cyanotic. No clubbing. Good capillary refill. SKIN: No skin breakdown. Vital Signs (last 8hr) Date Time Temp Pulse Resp B/P (MAP) Pulse Ox O2 Delivery O2 Flow Rate FiO2 11/05/24 09:40 109 97/64 96 Room Air 11/05/24 08:48 112 11/05/24 07:55 97.5 112 18 79/52 95 Room Air 11/05/24 07:15 96 Room Air* 0 21 11/05/24 04:53 107/69 11/05/24 04:01 98.2 107 18 98/66 98 Room Air LABS: Laboratory: Test 11/05/24 04:38 Range/Units White Blood Count 8.6 4.8-10.8 K/uL Red Blood Count 4.65 4.50-6.20 MIL/uL Hemoglobin 13.9 L 14.0-18.0 g/dL Hematocrit 43.8 42-54 % Mean Corpuscular Volume 94.2 79-99 fL Mean Corpuscular Hemoglobin 29.9 27.0-33.0 pg Mean Corpuscular Hemoglobin Concent 31.7 L 32.0-36.0 g/dL Red Cell Distribution Width 13.5 11.0-15.5 % Platelet Count 162 130-400 K/uL Mean Platelet Volume 10.2 7.5-10.5 fL Nucleated Red Blood Cells 0.0 0.0-0.19 % Sodium Level 141 136-145 mmol/L Potassium Level 4.6 3.5-5.1 mmol/L Chloride Level 105 101-111 mmol/L Carbon Dioxide Level 31 21-32 mmol/L Blood Urea Nitrogen 22 H 7-18 mg/dL Creatinine 1.0 0.5-1.3 mg/dL Glomerular Filtration Rate Calc 76 >90 mL/min Random Glucose 95 70-105 mg/dL Total Calcium 8.3 L 8.5-10.1 mg/dL Magnesium Level 1.80 1.80-2.40 mg/dL Total Bilirubin 0.6 0.2-1.0 mg/dL Aspartate Amino Transf (AST/SGOT) 21 10-37 U/L Alanine Aminotransferase (ALT/SGPT) 51 12-78 U/L Alkaline Phosphatase 20 L 50-136 U/L Total Protein 6.0 6.0-8.3 g/dL Albumin 2.9 L 3.5-5.0 g/dL Current Medications Medications (Trade) Dose Ordered Sig/Naif Route PRN Reason Start Time Stop Time Status Last Admin Dose Admin Acetaminophen (TYLenol 500MG TAB) 500 mg Q6H PRN PO MILD PAIN (1-3) 1/24/25 15:00 11/29/24 14:59 Apixaban (EliquIS) 5 mg BID PO 11/02/24 09:00 12/02/24 08:59 11/05/24 08:47 5 MG Bisacodyl (DulcoLAX 5MG TAB) 5 mg DAILYPRN PRN PO OTHER [SEE ORDER COMMENTS] 11/02/24 10:30 12/02/24 10:29 Digoxin (LANOxin 125mcg) 125 mcg DAILY PO 11/05/24 09:00 12/05/24 08:59 11/05/24 08:48 125 MCG Donepezil HCl (ARIcept 5MG TAB) 5 mg DAILY PO 10/31/24 09:00 11/30/24 08:59 11/05/24 08:47 5 MG Enoxaparin Sodium (Lovenox (Pharmacy To Dose)) 1 unit BID SQ 10/30/24 21:00 10/30/24 14:57 DC Enoxaparin Sodium (Lovenox) 100 mg BID SQ 10/30/24 21:00 11/02/24 08:28 DC 11/01/24 20:50 100 MG EZETIMIBE (Zetia) 10 mg DAILY PO 10/31/24 09:00 11/30/24 08:59 11/05/24 08:48 10 MG Famotidine (Pepcid 20mg Vial) 20 mg BID IV 10/30/24 21:00 10/30/24 20:45 DC Home Med (Home Medication) Calcium Polycarbophil (Fiber Ta... DAILY PO 10/31/24 09:00 11/30/24 08:59 Home Med (Home Medication) Linaclotide (Linzess) 72 MCG DAILY PO 10/31/24 09:00 11/30/24 08:59 Home Med (Home Medication) Mv-Mn/Om3/ Dha/Epa/ Fish/L... DAILY PO 10/31/24 09:00 11/30/24 08:59 Home Med (Home Medication) Vibegron (Gemtesa) 75 MG DAILY PO 10/31/24 09:00 11/30/24 08:59 Magnesium Sulfate 50 ml @ 0 mls/hr PROTOCOL IV 10/30/24 15:00 11/02/24 12:28 DC 10/30/24 16:14 25 MLS/HR Magnesium Sulfate 50 ml @ 0 mls/hr PROTOCOL IV 11/02/24 12:30 12/02/24 12:29 11/05/24 05:28 25 MLS/HR Metoprolol Tartrate (loprESSOR) 2.5 mg Q6H PRN IV for HR> 130 10/30/24 15:00 11/29/24 14:59 Metoprolol Tartrate (loprESSOR) 25 mg BID PO 11/02/24 09:00 11/02/24 10:24 DC Metoprolol Tartrate (loprESSOR) 25 mg Q8H PO 11/02/24 12:00 12/02/24 11:59 11/05/24 08:49 25 MG Midazolam HCl (Versed) 2 mg ONCE STAT IVP 10/31/24 10:40 10/31/24 10:42 DC 10/31/24 10:44 2 MG Multivitamins Therapeutic (Multivitamin Tablet) 1 tab AM PO 10/31/24 09:00 11/30/24 08:59 11/05/24 08:49 1 TAB Ondansetron HCl (zoFRAN 4MG INJ) 4 mg Q6H PRN IVP NAUSEA/VOMITING 10/30/24 15:00 11/29/24 14:59 Pantoprazole Sodium (PROTonix 40MG INJ) 40 mg Q24H IVP 10/30/24 21:00 11/29/24 20:59 11/04/24 20:50 40 MG Pharmacy Profile Note (Pharmacy Communication) 1 each PROTOCOL PRN MISC ETOH Withdrawal Score changes 11/02/24 10:30 11/09/24 10:29 Potassium Chloride 100 ml @ 100 mls/hr AD PRN IV POTASSIUM PROTOCOL 10/30/24 15:00 11/29/24 14:59 Potassium Chloride (K-Dur/Klor-Con 20meq) 20 meq AD PRN PO POTASSIUM PROTOCOL 10/30/24 15:00 11/29/24 14:59 11/02/24 15:30 20 MEQ Potassium Chloride (KCl 10% Elixir 20meq/15ml) 20 meq AD PRN PO POTASSIUM PROTOCOL 10/30/24 15:00 11/29/24 14:59 Sennosides (Senna) 1 tab DAILY PO 11/02/24 10:30 12/02/24 10:29 11/05/24 08:48 1 TAB Sodium Chloride 1,000 ml @ 70 mls/hr [id number] IV 10/30/24 15:00 12/01/24 21:00 11/03/24 04:58 70 MLS/HR Tamsulosin HCl (FloMAX) 0.4 mg HS PO 10/30/24 21:00 11/29/24 20:59 11/04/24 20:49 0.4 MG DIAGNOSTICS / RADIOLOGY: [ ] ASSESSMENT: Paroxysmal atrial flutter with episodes of RVR, POA History of paroxysmal atrial fibrillation with prior history of cardioversions and ablation, POA Generalized fatigue, POA History of BPH, POA History of urinary urgency, POA 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 PLAN: Remains admitted to the PCU Continue telemetry Cardiology input noted and appreciated Metoprolol increased to 25 mg p.o. t.i.d. Continue the patient on digoxin Eliquis 5 mg p.o. b.i.d. CBC in a.m. transfuse as needed Monitor for signs of alcohol withdrawal Replace electrolytes IV per protocol All labs will be repeated in the morning GI and DVT prophylaxis Disposition: Pending improvement in clinical status. Continue to follow Cardiology input and recommendations. Total PCU time spent greater than 30 minutes. FRED ESTEVEZ MD Nov 05, 2024 11:31
[2024-11-05] MEDS: dilTIAZem 60MG TAB PO SCH (17:02)
[2024-11-06] VITALS (10 sets, daily range): BP systolic 94–139; BP diastolic 47–84; PULSE 78–112; RESP 18; TEMP 97.6–98.7; O2SAT 98
--- NOTE | 2024-11-06 05:32 | NUR ---
@0515am spoke to avery with telemetry. stated patient converted to afib controlled this am. afib 84. stated that overnight patient has being in sinus tachycardia, however this am converted back to afib but is now controlled.
--- NOTE | 2024-11-06 07:12 | PN ---
[facility] ELECTROPHYSIOLOGY PROGRESS NOTE Date Patient Seen: Nov 05, 2024 Time of Visit: 08:06 Interval History: The patient continues to have suboptimal heart rates. The ejection does not appear to have had an effect as of yet, however he is only received 0.5 mg at the time of this dictation. In addition, his magnesium continues to require replacement. He had a transthoracic echo revealing only mild left ventricular dysfunction with an ejection fraction of approximately 45%. Physical Examination: Lungs are clear Heart is regular and slightly tachycardic with no murmur Extremities are without edema. Impression and Plan: 1. Atypical atrial flutter with a suboptimal rate control 2. Left atrial appendage thrombus 3. Newly diagnosed cardiomyopathy with EF 25-30% by SANDOVAL, But with more complete evaluation with transthoracic echo showing ejection fraction of 45%.. 4. Persistent hypomagnesemia of unclear etiology. Plan: 1. At this point we will add a low-dose of diltiazem, 30 mg every 6 hours to the patient's existing regimen of metoprolol and digoxin 2. We will need to watch his blood pressure carefully. 3. We will need to observe closely for exacerbation of his constipation. He d oes have a workup pending with Dr. Alvarado Gamino. 4. The patient can undergo either cardioversion or possibly catheter ablation if a repeat SANDOVAL in 30 days demonstrates resolution of the thrombus. 5. Possible discharge tomorrow pending heart rate and blood pressure. GILA GLEASON MD Nov 06, 2024 07:12
--- NOTE | 2024-11-06 09:14 | PN ---
[facility] CARDIAC ELECTROPHYSIOLOGY PROGRESS NOTE Date Patient Seen: Nov 06, 2024 Time of Visit: 09:09 Interval History: remains in AFL/AF VR 100s at rest Physical Examination: Lungs are clear Heart is regular and slightly tachycardic with no murmur Extremities are without edema. Laboratory: [ ] Hematology Labs: Test 11/05/24 04:38 Range/Units White Blood Count 8.6 4.8-10.8 K/uL Red Blood Count 4.65 4.50-6.20 MIL/uL Hemoglobin 13.9 L 14.0-18.0 g/dL Hematocrit 43.8 42-54 % Mean Corpuscular Volume 94.2 79-99 fL Mean Corpuscular Hemoglobin 29.9 27.0-33.0 pg Mean Corpuscular Hemoglobin Concent 31.7 L 32.0-36.0 g/dL Red Cell Distribution Width 13.5 11.0-15.5 % Platelet Count 162 130-400 K/uL Mean Platelet Volume 10.2 7.5-10.5 fL Nucleated Red Blood Cells 0.0 0.0-0.19 % Chemistry Labs: Test 11/06/24 03:50 11/05/24 04:38 Range/Units Magnesium Level 1.70 L 1.80-2.40 mg/dL Sodium Level 141 136-145 mmol/L Potassium Level 4.6 3.5-5.1 mmol/L Chloride Level 105 101-111 mmol/L Carbon Dioxide Level 31 21-32 mmol/L Blood Urea Nitrogen 22 H 7-18 mg/dL Creatinine 1.0 0.5-1.3 mg/dL Glomerular Filtration Rate Calc 76 >90 mL/min Random Glucose 95 70-105 mg/dL Total Calcium 8.3 L 8.5-10.1 mg/dL Total Bilirubin 0.6 0.2-1.0 mg/dL Aspartate Amino Transf (AST/SGOT) 21 10-37 U/L Alanine Aminotransferase (ALT/SGPT) 51 12-78 U/L Alkaline Phosphatase 20 L 50-136 U/L Total Protein 6.0 6.0-8.3 g/dL Albumin 2.9 L 3.5-5.0 g/dL Diagnostics / Radiology: [Copy/Paste Echos/Imaging Report here] Impression and Plan: 1. Atypical atrial flutter with a suboptimal rate control 2. Left atrial appendage thrombus 3. Newly diagnosed cardiomyopathy with EF 25-30% by SANDOVAL, But with more complete evaluation with transthoracic echo showing ejection fraction of 45%.. 4. Persistent hypomagnesemia of unclear etiology. Plan: 1. Transition short acting diltiazem to long acting version. suggest we do the same with metoprolol. continue digoxin 2. We will need to watch his blood pressure carefully.he will ambulate as well 3. We will need to observe closely for exacerbation of his constipation. He does have a workup pending with Dr. Alvarado Gamino. 4. The patient can undergo either cardioversion or possibly catheter ablation if a repeat SANDOVAL in 30 days demonstrates resolution of the thrombus. 5. Possible discharge tomorrow pending heart rate and blood pressure. YOKASTA GIBSON MD Nov 06, 2024 09:14
--- NOTE | 2024-11-06 09:28 | PN ---
[facility] PROGRESS NOTE Date of Service: Nov 06, 2024 Time of Service: 09:28 SUBJECTIVE: 10/31 patient seen at bedside, no acute events overnight. Cardioversion was attempted today however he was not successful, Cardiology plans to repeat again tomorrow, continue patient on telemetry and monitor. Potassium increased from 4.2 up to 5.2. Echocardiogram pending, we will follow up. 11/01 seen at bedside, no acute events overnight, cardioversion was not successful today, maged was done showing atrial thrombus. Cardiology recommending medical managed at this time, p.o. medications have been adjusted, we will continue to monitor and reassess tomorrow. Start metoprolol 25 mg twice daily per Cardiology. 11/02 patient is seen and examined, eating lunch, comfortable in bed. BP 10/10/68, heart rate of 52, rest of the vital signs unremarkable. CBC with hemoglobin 13.1, hematocrit 40.6, WBC 6.7, platelet count of 154. CMP with sodium 140, potassium 3.7, BUN 17, creatinine 0.9. MAGED done, showing atrial thrombus, Patient started on metoprolol 25 mg p.o. b.i.d. patient also on Eliquis 5 mg p.o. b.i.d. 11/03 the patient has been seen and examined, no acute events overnight, BP 99/66, telemetry reviewed, the patient is still tachycardic, heart rate 111. He is afebrile, saturating normal on room air. He underwent attempt at MAGED for possible cardioversion on 10/31/2024 unable to obtain adequate images and patient was unable to tolerate procedure despite increasing doses of sedation. He underwent a subsequent MAGED on 11/01/2024 with anesthesia demonstrating a left atrial appendage thrombus. Plans for cardioversion were deferred. Patient evaluated by mutual fund analyst, metoprolol tartrate changed from 25 mg p.o. b.i.d. to 25 mg p.o. q.8 hours, we will continue to monitor on telemetry. Patient will continue on Eliquis 5 mg p.o. b.i.d., continue to monitor for signs of active bleeding, hemoglobin today at 13.5, stable from prior day. Hematocrit 42.0. We will continue to monitor for alcohol withdrawal. 11/04 patient is seen and examined bedside during rounding, comfortably in bed, alert oriented x3, patient evaluated by cast iron dipper, patient continues with a atypical atrial flutter, heart rate remains suboptimal. Patient has been on metoprolol tartrate 25 mg p.o. q.8 hours. Cardioversion was not performed due left atrial appendage thrombus. Patient has remained on Eliquis 5 mg p.o. b.i.d.. Calcium channel blockers are not good options for the patient as he has LV systolic dysfunction, in addition suffered from constipation. Digoxin has been added to current regimen to improve rate controlled. Patient can undergo either cardioversion possibly catheter ablation if a repeat MAGED 30 days demonstrates resolution of the thrombus. 11/05 patient is seen and examined at bedside, still in atrial flutter, heart rate fluctuating between 107 to 112. BP 97/64, he is alert oriented x3, no chest pain, no shortness a breath, no palpitations. Currently the patient on digoxin 125 mcg p.o. daily. Continue metoprolol 25 mg p.o. q.8 hours. Patient also on Eliquis 5 mg p.o. b.i.d.. 11/06 patient is seen and examined at bedside, remains comfortably in bed, patient evaluated by EP, patient is started on Toprol-XL 25 mg p.o. b.i.d. Cardizem CD 120 mg p.o. b.i.d.. Per EP with continue close monitoring of the patient's BP and heart rate, he is stable anticipate discharge home in the next 24 hours. Patient updated, all questions answered. REVIEW OF SYSTEMS 12 point review of systems negative unless noted in HPI PHYSICAL EXAM GENERAL APPEARANCE: The patient is awake, alert, and oriented, in no acute cardiopulmonary distress. NEUROLOGICAL: Cranial nerves II-XII grossly intact. Motor is 5/5 in bilateral upper and lower extremities proximal to distal. No sensory deficits. HEENT: Face is symmetric. Pupils are equal and reactive. Extraocular movements are intact. NECK: Supple. No JVD. No thyromegaly. No submental, submandibular, pre- /postauricular, occipital or supraclavicular lymphadenopathy. CHEST: Normal chest expansion. No Telemetry. LUNGS: Absence of any rales, rhonchi or any wheezing. CARDIOVASCULAR: Irregularly irregular. S1 and S2 normal. No appreciable rubs, murmurs or gallops. ABDOMEN: Soft, nontender, and nondistended. There is no rebound, voluntary guarding, or rigidity. : Deferred. No Kulkarni. EXTREMITIES: Non-edematous and not cyanotic. No clubbing. Good capillary refill. SKIN: No skin breakdown. Vital Signs (last 8hr) Date Time Temp Pulse Resp B/P (MAP) Pulse Ox O2 Delivery O2 Flow Rate FiO2 11/06/24 08:25 97.5 108 18 97/47 98 Room Air 11/06/24 08:23 107 11/06/24 05:15 84 11/06/24 03:37 98.8 107 18 110/73 92 Room Air LABS: Laboratory: Test 11/06/24 03:50 11/05/24 04:38 Range/Units Magnesium Level 1.70 L 1.80-2.40 mg/dL White Blood Count 8.6 4.8-10.8 K/uL Red Blood Count 4.65 4.50-6.20 MIL/uL Hemoglobin 13.9 L 14.0-18.0 g/dL Hematocrit 43.8 42-54 % Mean Corpuscular Volume 94.2 79-99 fL Mean Corpuscular Hemoglobin 29.9 27.0-33.0 pg Mean Corpuscular Hemoglobin Concent 31.7 L 32.0-36.0 g/dL Red Cell Distribution Width 13.5 11.0-15.5 % Platelet Count 162 130-400 K/uL Mean Platelet Volume 10.2 7.5-10.5 fL Nucleated Red Blood Cells 0.0 0.0-0.19 % Sodium Level 141 136-145 mmol/L Potassium Level 4.6 3.5-5.1 mmol/L Chloride Level 105 101-111 mmol/L Carbon Dioxide Level 31 21-32 mmol/L Blood Urea Nitrogen 22 H 7-18 mg/dL Creatinine 1.0 0.5-1.3 mg/dL Glomerular Filtration Rate Calc 76 >90 mL/min Random Glucose 95 70-105 mg/dL Total Calcium 8.3 L 8.5-10.1 mg/dL Total Bilirubin 0.6 0.2-1.0 mg/dL Aspartate Amino Transf (AST/SGOT) 21 10-37 U/L Alanine Aminotransferase (ALT/SGPT) 51 12-78 U/L Alkaline Phosphatase 20 L 50-136 U/L Total Protein 6.0 6.0-8.3 g/dL Albumin 2.9 L 3.5-5.0 g/dL Current Medications Medications (Trade) Dose Ordered Sig/Naif Route PRN Reason Start Time Stop Time Status Last Admin Dose Admin Acetaminophen (TYLenol 500MG TAB) 500 mg Q6H PRN PO MILD PAIN (1-3) 10/30/24 15:00 11/29/24 14:59 Apixaban (EliquIS) 5 mg BID PO 11/02/24 09:00 12/02/24 08:59 11/06/24 08:24 5 MG Bisacodyl (DulcoLAX 5MG TAB) 5 mg DAILYPRN PRN PO OTHER [SEE ORDER COMMENTS] 11/02/24 10:30 12/02/24 10:29 Digoxin (LANOxin 125mcg) 125 mcg DAILY PO 11/05/24 09:00 12/05/24 08:59 11/06/24 08:23 125 MCG Diltiazem HCl (CARDIzem 120MG CD) 120 mg BID PO 11/06/24 21:00 12/06/24 20:59 Diltiazem HCl (CARDIzem 60MG TAB) 30 mg Q6H6 PO 11/05/24 18:00 11/06/24 09:11 DC 11/06/24 07:12 30 MG Donepezil HCl (ARIcept 5MG TAB) 5 mg DAILY PO 10/31/24 09:00 11/30/24 08:59 11/06/24 08:23 5 MG Enoxaparin Sodium (Lovenox (Pharmacy To Dose)) 1 unit BID SQ 10/30/24 21:00 10/30/24 14:57 DC Enoxaparin Sodium (Lovenox) 100 mg BID SQ 10/30/24 21:00 11/02/24 08:28 DC 11/01/24 20:50 100 MG EZETIMIBE (Zetia) 10 mg DAILY PO 10/31/24 09:00 11/30/24 08:59 11/06/24 08:23 10 MG Famotidine (Pepcid 20mg Vial) 20 mg BID IV 10/30/24 21:00 10/30/24 20:45 DC Home Med (Home Medication) Calcium Polycarbophil (Fiber Ta... DAILY PO 10/31/24 09:00 11/30/24 08:59 Home Med (Home Medication) Linaclotide (Linzess) 72 MCG DAILY PO 10/31/24 09:00 11/30/24 08:59 Home Med (Home Medication) Mv-Mn/Om3/ Dha/Epa/ Fish/L... DAILY PO 10/31/24 09:00 11/30/24 08:59 Home Med (Home Medication) Vibegron (Gemtesa) 75 MG DAILY PO 10/31/24 09:00 11/30/24 08:59 Magnesium Sulfate 50 ml @ 0 mls/hr PROTOCOL IV 10/30/24 15:00 11/02/24 12:28 DC 10/30/24 16:14 25 MLS/HR Magnesium Sulfate 50 ml @ 0 mls/hr PROTOCOL IV 11/02/24 12:30 12/02/24 12:29 11/06/24 04:51 25 MLS/HR Metoprolol Succinate (TopROL XL) 25 mg BID PO 11/06/24 21:00 12/06/24 20:59 Metoprolol Tartrate (loprESSOR) 2.5 mg Q6H PRN IV for HR> 130 10/30/24 15:00 11/29/24 14:59 Metoprolol Tartrate (loprESSOR) 25 mg BID PO 11/02/24 09:00 11/02/24 10:24 DC Metoprolol Tartrate (loprESSOR) 25 mg Q8H PO 11/02/24 12:00 11/06/24 09:24 DC 11/06/24 04:50 25 MG Midazolam HCl (Versed) 2 mg ONCE STAT IVP 10/31/24 10:40 10/31/24 10:42 DC 10/31/24 10:44 2 MG Multivitamins Therapeutic (Multivitamin Tablet) 1 tab AM PO 10/31/24 09:00 11/30/24 08:59 11/05/24 08:49 1 TAB Ondansetron HCl (zoFRAN 4MG INJ) 4 mg Q6H PRN IVP NAUSEA/VOMITING 10/30/24 15:00 11/29/24 14:59 Pantoprazole Sodium (PROTonix 40MG INJ) 40 mg Q24H IVP 10/30/24 21:00 11/29/24 20:59 11/05/24 20:52 40 MG Pharmacy Profile Note (Pharmacy Communication) 1 each PROTOCOL PRN MISC ETOH Withdrawal Score changes 11/02/24 10:30 11/09/24 10:29 Potassium Chloride 100 ml @ 100 mls/hr AD PRN IV POTASSIUM PROTOCOL 10/30/24 15:00 11/29/24 14:59 Potassium Chloride (K-Dur/Klor-Con 20meq) 20 meq AD PRN PO POTASSIUM PROTOCOL 10/30/24 15:00 11/29/24 14:59 11/02/24 15:30 20 MEQ Potassium Chloride (KCl 10% Elixir 20meq/15ml) 20 meq AD PRN PO POTASSIUM PROTOCOL 10/30/24 15:00 11/29/24 14:59 Sennosides (Senna) 1 tab DAILY PO 11/02/24 10:30 12/02/24 10:29 11/06/24 08:24 1 TAB Sodium Chloride 1,000 ml @ 70 mls/hr [id number] IV 10/30/24 15:00 12/01/24 21:00 11/03/24 04:58 70 MLS/HR Tamsulosin HCl (FloMAX) 0.4 mg HS PO 10/30/24 21:00 11/29/24 20:59 11/05/24 20:51 0.4 MG DIAGNOSTICS / RADIOLOGY: [ ] ASSESSMENT: Paroxysmal atrial flutter with episodes of RVR, POA History of paroxysmal atrial fibrillation with prior history of cardioversions and ablation, POA Generalized fatigue, POA History of BPH, POA History of urinary urgency, POA 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 PLAN: Remains admitted to the PCU Continue telemetry Cardiology input noted and appreciated Continue Toprol-XL 25 mg p.o. b.i.d. Continue Cardizem CD 120 mg p.o. b.i.d. Continue the patient on digoxin 125 mcg p.o. daily Eliquis 5 mg p.o. b.i.d. CBC in a.m. transfuse as needed Monitor for signs of alcohol withdrawal Replace electrolytes IV per protocol All labs will be repeated in the morning GI and DVT prophylaxis Disposition: Pending improvement in clinical status. Continue to follow Cardiology input and recommendations. Possible discharge home in the next 24 hours. Total PCU time spent greater than 30 minutes. FRED ESTEVEZ MD Nov 06, 2024 09:28
[2024-11-06] MEDS ORDERED: MAGNESIUM 2GM PREMIX 50ML 50 ML IV SCH (10:00)
[2024-11-06] MEDS: metOPROLol sucCINATE 25 MG TAB.SR.24H PO SCH (20:52)
[2024-11-06] MEDS: dilTIAZem 120MG SR CAP PO SCH (20:52)
[2024-11-07 00:07] VITALS: BP 112/76; PULSE 102; RESP 18; TEMP 98.7
[2024-11-07 03:47] LABS: HEMATOCRIT 41.7 % (42-54); MEAN CORPUSCULAR HEMOGLOBIN 30.1 pg (27.0-33.0); MEAN CORPUSCULAR HGB CONC 32.1 g/dL (32.0-36.0); MEAN CORPUSCULAR VOLUME 93.7 fL (79-99); RED BLOOD CELL COUNT(AUTO) 4.45 MIL/uL (4.50-6.20); RED CELL DISTRIBUTION WIDTH 13.3 % (11.0-15.5); WHITE BLOOD COUNT (AUTO) 7.4 K/uL (4.8-10.8)
[2024-11-07 04:08] LABS: ALBUMIN 2.8 g/dL (3.5-5.0); BILIRUBIN,TOTAL 0.6 mg/dL (0.2-1.0); MAGNESIUM 1.9 mg/dL (1.80-2.40); POTASSIUM 4.2 mmol/L (3.5-5.1); TOTAL PROTEIN, SERUM 5.7 g/dL (6.0-8.3)
[2024-11-07 04:16] VITALS: BP 102/68; PULSE 64; RESP 18; TEMP 97.7
[2024-11-07 04:30] VITALS: PULSE 80
[2024-11-07 07:44] VITALS: BP 127/83; PULSE 105; RESP 18; TEMP 97.8
--- NOTE | 2024-11-07 08:54 | PN ---
[facility] CARDIOLOGY PROGRESS NOTE Date Patient Seen: Nov 07, 2024 Time of Visit: 08:51 Interval History: remains in AFL/AF VR 100s at rest Physical Examination: Lungs are clear Heart is regular and slightly tachycardic with no murmur Extremities are without edema. Laboratory: [ ] Hematology Labs: Test 11/07/24 03:22 Range/Units White Blood Count 7.4 4.8-10.8 K/uL Red Blood Count 4.45 L 4.50-6.20 MIL/uL Hemoglobin 13.4 L 14.0-18.0 g/dL Hematocrit 41.7 L 42-54 % Mean Corpuscular Volume 93.7 79-99 fL Mean Corpuscular Hemoglobin 30.1 27.0-33.0 pg Mean Corpuscular Hemoglobin Concent 32.1 32.0-36.0 g/dL Red Cell Distribution Width 13.3 11.0-15.5 % Platelet Count 167 130-400 K/uL Mean Platelet Volume 10.5 7.5-10.5 fL Nucleated Red Blood Cells 0.0 0.0-0.19 % Chemistry Labs: Test 11/07/24 03:22 Range/Units Sodium Level 139 136-145 mmol/L Potassium Level 4.2 3.5-5.1 mmol/L Chloride Level 105 101-111 mmol/L Carbon Dioxide Level 31 21-32 mmol/L Blood Urea Nitrogen 22 H 7-18 mg/dL Creatinine 1.0 0.5-1.3 mg/dL Glomerular Filtration Rate Calc 76 >90 mL/min Random Glucose 96 70-105 mg/dL Total Calcium 8.1 L 8.5-10.1 mg/dL Magnesium Level 1.90 1.80-2.40 mg/dL Total Bilirubin 0.6 0.2-1.0 mg/dL Aspartate Amino Transf (AST/SGOT) 12 10-37 U/L Alanine Aminotransferase (ALT/SGPT) 31 12-78 U/L Alkaline Phosphatase 20 L 50-136 U/L Total Protein 5.7 L 6.0-8.3 g/dL Albumin 2.8 L 3.5-5.0 g/dL Diagnostics / Radiology: [Copy/Paste Echos/Imaging Report here] Impression and Plan: 1. Atypical atrial flutter with a suboptimal rate control 2. Left atrial appendage thrombus 3. Newly diagnosed cardiomyopathy with EF 25-30% by SANDOVAL, But with more complete evaluation with transthoracic echo showing ejection fraction of 45%. 4. Persistent hypomagnesemia of unclear etiology. Plan: 1. Transition short acting diltiazem to long acting version 120 mg bid. suggest we do the same with metoprolol succinate 25 mg bid. continue digoxin 2. We will need to watch his blood pressure carefully. 3. We will need to observe closely for exacerbation of his constipation. He does have a workup pending with Dr. Alvarado Gamino. 4. The patient can undergo either cardioversion or possibly catheter ablation if a repeat SANDOVAL in 30 days demonstrates resolution of the thrombus. I will sign off. Patient may be discharged and follow up with Dr Stone in one week. Joyce LYNN,JOYCE Timmons MD Nov 07, 2024 08:54
[2024-11-07 10:04] VITALS: O2SAT 98
[2024-11-07] MEDS ORDERED: METO25TA3 PO (10:16)
[2024-11-07] MEDS ORDERED: APIX5TAB PO (10:16)
[2024-11-07] MEDS ORDERED: DIGO125T71 PO (10:16)
[2024-11-07] MEDS ORDERED: DILT120C89 PO (10:16)
[2024-11-07 10:41] VITALS: BP 98/62; PULSE 89; RESP 18; TEMP 97.7
--- NOTE | 2024-11-07 13:22 | DS ---
Discharge Summary Hospital Course Summary: 79 year old male with history of atrial flutter/atrial fibrillation with prior history of catheter ablation for paroxysmal atrial fibrillation 11/2022, history of multiple cardioversions for atrial fibrillation, BPH, who presented to the ER for further evaluation of abnormal heart rhythm. Patient stated that his apple watch notified him that his heart rate was irregular and he was worried that he may be in atrial fibrillation. He started taking Eliquis for anticoagulation. Reportd that he has been off Eliquis for about nine months previously. Patient is followed by Dr. Stone and Dr. Frank with Cardiology as outpatient. He has underlying history of paroxysmal atrial fibrillation and previously has undergone catheter ablation with most recent being in 11/2022 and cardioversion as well with last being close to September,. Patient also noticed significant fatigue as well. On presentation to the hospital, patient was noted to have systolic blood pressure in the 90s to 100s/60s diastolic. Patient was noted to be in atrial flutter on presentation with heart rate trending between 100s-110s. Labs on presentation showed WBC count of 9200, hemoglobin of 15.3, platelet count of [id number]. BMP remarkable for sodium of 143, potassium 4.2, BUN of 29, creatinine 1.0, magnesium. Chest x-ray showed no acute infiltrates. Patient w admitted for further management of recurrence of atrial flutter with episodes of RVR. Plan w for MAGED guided cardioversion by cardiology. 10/31 patient seen at bedside, no acute events overnight. Cardioversion was atte mpted today however he was not successful, Cardiology plans to repeat again tomorrow, continue patient on telemetry and monitor. Potassium increased from 4.2 up to 5.2. Echocardiogram pending, we will follow up. 11/01 seen at bedside, no acute events overnight, cardioversion was not successful today, maged was done showing atrial thrombus. Cardiology recommending medical managed at this time, p.o. medications have been adjusted, we will continue to monitor and reassess tomorrow. Start metoprolol 25 mg twice daily per Cardiology. 11/02 patient is seen and examined, eating lunch, comfortable in bed. BP 69, heart rate of 52, rest of the vital signs unremarkable. CBC with hemoglobin 13.1, hematocrit 40.6, WBC 6.7, platelet count of 154. CMP with sodium 140, potassium 3.7, BUN 17, creatinine 0.9. MAGED done, showing atrial thrombus, Patient started on metoprolol 25 mg p.o. b.i.d. patient also on Eliquis 5 mg p.o. b.i.d. 11/03 the patient has been seen and examined, no acute events overnight, BP 99/66, telemetry reviewed, the patient is still tachycardic, heart rate 111. He is afebrile, saturating normal on room air. He underwent attempt at MAGED for possible cardioversion on 10/31/2024 unable to obtain adequate images and patient was unable to tolerate procedure despite increasing doses of sedation. He underwent a subsequent MAGED on 11/01/2024 with anesthesia demonstrating a left atrial appendage thrombus. Plans for cardioversion were deferred. Patient evaluated by o and m supervisor, metoprolol tartrate changed from 25 mg p.o. b.i.d. to 25 mg p.o. q.8 hours, we will continue to monitor on telemetry. Patient will continue on Eliquis 5 mg p.o. b.i.d., continue to monitor for signs of active bleeding, hemoglobin today at 13.5, stable from prior day. Hematocrit 42.0. We will continue to monitor for alcohol withdrawal. 11/04 patient is seen and examined bedside during rounding, comfortably in bed, alert oriented x3, patient evaluated by roller die cutting machine operator, patient continues with a atypical atrial flutter, heart rate remains suboptimal. Patient has been on metoprolol tartrate 25 mg p.o. q.8 hours. Cardioversion was not performed due left atrial appendage thrombus. Patient has remained on Eliquis 5 mg p.o. b.i.d.. Calcium channel blockers are not good options for the patient as he has LV systolic dysfunction, in addition suffered from constipation. Digoxin has been added to current regimen to improve rate controlled. Patient can undergo either cardioversion possibly catheter ablation if a repeat MAGED 30 days demonstrates resolution of the thrombus. 11/05 patient is seen and examined at bedside, still in atrial flutter, heart rate fluctuating between 107 to 112. BP 97/64, he is alert oriented x3, no chest pain, no shortness a breath, no palpitations. Currently the patient on digoxin 125 mcg p.o. daily. Continue metoprolol 25 mg p.o. q.8 hours. Patient also on Eliquis 5 mg p.o. b.i.d.. 11/06 patient is seen and examined at bedside, remains comfortably in bed, patient evaluated by EP, patient is started on Toprol-XL 25 mg p.o. b.i.d. Cardizem CD 120 mg p.o. b.i.d.. Per EP with continue close monitoring of the patient's BP and heart rate, he is stable anticipate discharge home in the next 24 hours. Patient updated, all questions answered. 11/07 patient alert oriented x3, denied dizziness, no headache, no blurry vision, no chest pain, no shortness a breath, no palpitation, no nausea, no vomiting, no abdominal pain. He would like to be discharged home. PHYSICAL EXAM GENERAL APPEARANCE: The patient is awake, alert, and oriented, in no acute cardiopulmonary distress. NEUROLOGICAL: Cranial nerves II-XII grossly intact. Motor is 5/5 in bilateral upper and lower extremities proximal to distal. No sensory deficits. HEENT: Face is symmetric. Pupils are equal and reactive. Extraocular movements are intact. NECK: Supple. No JVD. No thyromegaly. No submental, submandibular, pre- /postauricular, occipital or supraclavicular lymphadenopathy. CHEST: Normal chest expansion. No Telemetry. LUNGS: Absence of any rales, rhonchi or any wheezing. CARDIOVASCULAR: Irregularly irregular. S1 and S2 normal. No appreciable rubs, murmurs or gallops. ABDOMEN: Soft, nontender, and nondistended. There is no rebound, voluntary guarding, or rigidity. : Deferred. No Kulkarni. EXTREMITIES: Non-edematous and not cyanotic. No clubbing. Good capillary refill. SKIN: No skin breakdown. Process Engineering Manager(s): Cardiology Procedure(s): Attempted cardioversion x2 not successful, MAGED done showing atrial thrombus. Assessment/Plan: FINAL DIAGNOSIS Paroxysmal atrial flutter with episodes of RVR, POA History of paroxysmal atrial fibrillation with prior history of cardioversions and ablation, POA Generalized fatigue, POA History of BPH, POA History of urinary urgency, POA 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 Discharge Instructions: PATIENT TO FOLLOW UP WITH CARDIOLOGY AN OUTPATIENT, RETURN TO HOSPITAL IF CONDITION CHANGES, PATIENT AGREED WITH PLAN UNDERSTOOD THE INFORMATION PROVIDED. Home Medications: Active Scripts Metoprolol Succinate (Toprol Xl) 25 Mg Tab.er.24h, 25 MG PO BID for 30 Days, #60 TAB 2 Refills Prov:FRED ESTEVEZ MD 11/07/24 Diltiazem HCl (Cardizem Cd 120 mg) 120 Mg Cap.er.24h, 120 MG PO BID for 30 Days, #60 CAPSULE.DR 2 Refills Prov:FRED ESTEVEZ MD 11/07/24 Digoxin (Digoxin) 125 Mcg (0.125 Mg) Tablet, 125 MCG PO DAILY for 30 Days, #30 TAB 2 Refills Prov:FRED ESTEVEZ MD 11/07/24 Apixaban (Eliquis) 5 Mg Tablet, 5 MG PO BID for 30 Days, #60 TAB 2 Refills Prov:FRED ESTEVEZ MD 11/07/24 Reported Medications Calcium Polycarbophil (Fiber Tabs) 625 Mg Tablet, 625 MG PO DAILY, TAB 10/30/24 Tamsulosin HCl (Flomax) 0.4 Mg Cap.er.24h, 0.4 MG PO DAILY, CAPSULE. 10/30/24 Donepezil HCl (Donepezil HCl) 5 Mg Tablet, 1 TAB PO DAILY for 30 Days, #30 TAB 0 Refills 10/30/24 [Zinc] No Conflict Check, 1 TAB PO AM 02/20/23 Multivitamins,Therapeutic (Multivitamin Tablet) 1 Tab Tab, 1 TAB PO AM, TAB 02/20/23 Mv-Mn/Om3/Dha/Epa/Fish/Lut/Nanda (Ocuvite Adult 50 Plus Softgel) 1 Each Capsule, 1 EACH PO DAILY, CAP 01/31/23 Linaclotide (Linzess) 72 Mcg Capsule, 72 MCG PO DAILY, CAP 01/31/23 Vibegron (Gemtesa) 75 Mg Tablet, 75 MG PO DAILY, TAB 11/26/22 Apixaban (Eliquis) 5 Mg Tablet, 5 MG PO BID, TAB 09/10/22 Magnesium Oxide (Magnesium) 500 Mg Capsule, 500 MG PO DAILY, CAP 09/07/22 Ezetimibe (Zetia) 10 Mg Tablet, 10 MG PO DAILY, TAB 11/09/16 Discontinued Reported Medications Folic Acid (Folic Acid) 0.8 Mg Tablet, 0.8 MG PO DAILY, TAB 02/26/23 [Glucosamine] No Conflict Check, 2 GUM PO DAILY 02/25/23 [Collagen] No Conflict Check, 2 GUM PO DAILY 02/25/23 [Brain Food] No Conflict Check, 2 TAB PO DAILY 02/25/23 Ubidecarenone/Vit E Acetate (Co Q-10 100 mg Softgel) 1 Each Capsule, 1 EACH PO DAILY, CAP 02/25/23 Amiodarone HCl (Amiodarone HCl) 200 Mg Tablet, 200 MG PO BID, TAB 02/25/23 Docusate Sodium (Colace) 100 Mg Capsule, 100 MG PO AM, CAP 02/20/23 Cyanocobalamin (Vitamin B-12) (Vitamin B12) 5,000 Mcg Tab.rapdis, 5000 MCG PO AM, TAB 02/20/23 Cholecalciferol (Vitamin D3) (D3-50) 50,000 Unit Capsule, 79975 UNIT PO DAILY, CAP 01/31/23 L.acidoph & Paracasei,B.lactis (Probiotic) 1 Each Capsule, 1 EACH PO DAILY, CAP 01/31/23 Polyethylene Glycol 3350 (Miralax) 17 Gm Powd.pack, 1 CAP PO DAILY PRN for constipation 01/31/23 Tamsulosin HCl (Flomax) 0.4 Mg Cap.er.24h, 0.4 MG PO HS, CAPSULE. 11/26/22 Time spent arranging discharge: 31-60 minutes FRED ESTEVEZ MD Nov 07, 2024 13:22
== END 2024-11-07 11:59 | disposition home or self-care (01) | DRG 308 ==
LOC: EDH 11:39 → EDHIP 14:40 → 2DH 10-31 01:35
PROVIDERS: ADMIT Internal Medicine; ATTEND Internal Medicine
PROC: B24BZZ4 Ultrasonography of Heart with Aorta, Transesophageal (ICD-10-PCS; principal; 2024-11-01)
DX: I48.4 Atypical atrial flutter (principal); I50.21 Acute systolic (congestive) heart failure; I11.0 Hypertensive heart disease with heart failure; I48.19 Other persistent atrial fibrillation; N39.498 Other specified urinary incontinence; I25.10 Atherosclerotic heart disease of native coronary artery without angina pectoris; I49.3 Ventricular premature depolarization; I51.3 Intracardiac thrombosis, not elsewhere classified; K59.09 Other constipation; F10.10 Alcohol abuse, uncomplicated; F03.90 Unspecified dementia, unspecified severity, without behavioral disturbance, psychotic disturbance, mood disturbance, and anxiety; E78.00 Pure hypercholesterolemia, unspecified; N40.1 Benign prostatic hyperplasia with lower urinary tract symptoms; R39.15 Urgency of urination; I35.1 Nonrheumatic aortic (valve) insufficiency; Y90.9 Presence of alcohol in blood, level not specified; I42.9 Cardiomyopathy, unspecified; Z20.822 Contact with and (suspected) exposure to COVID-19; Z79.01 Long term (current) use of anticoagulants; Z79.899 Other long term (current) drug therapy; Z82.49 Family history of ischemic heart disease and other diseases of the circulatory system
CPT/HCPCS: 36415; 71045; 80048; 80053; 80076; 81001; 82550; 83036; 83735; 83880; 84145; 84443; 84484; 85025; 85027; 85651; 86140; 87635; 87804; 93005; 93306; 93312; 93325; 93356; 99285; G0378; J1650; J2250; J2470; J2704; J3010; J3475; J3490